=== PATIENT | female | born 1940 | race Caucasian/White ===

== ENCOUNTER 2017-02-24 21:22 | Inpatient (IN) | payer OTHER ==
[2017-02-24 22:01] LABS: % IMMATURE GRANULYOCYTES 0.8 % (0.0-1.1); ABSOLUTE IMMATURE GRANULOCYTES 0.04 10^3/uL (0.00-0.10); ADD DIFF? NO; ADD MORPH? NO; ADD SCAN? NO; ATYPICAL LYMPHOCYTE FLAG 0 (0-99); FRAGMENT RBC FLAG 20 (0-99); HEMATOCRIT 42.9 % (38.0-47.0); HEMOGLOBIN 13.8 g/dL (12.6-16.3); LEFT SHIFT FLG 0 (0-99); LIPEMIA HEMOLYSIS FLAG 80 (0-99); MEAN CELL HEMOGLOBIN 29.7 pg (27.9-34.1); MEAN CELL HEMOGLOBIN CONCENTR. 32.2 g/dL (32.4-36.7); MEAN CELL VOLUME 92.3 fL (81.5-99.8); MEAN PLATELET VOLUME 10.8 fL (8.7-11.7); PLATELET CLUMPS FLAG 10 (0-99); PLATELET COUNT 154 10^3/uL (150-400); RED BLOOD CELL COUNT 4.65 10^6/uL (4.18-5.33); RED CELL DISTRIBUTION WIDTH 17.2 % (11.5-15.2)
--- NOTE | 2017-02-24 22:05 | EDPHY ---
H & P Stated Complaint: possible anxiety, dyspnea, FTT HPI/ROS: HPI CHIEF COMPLAINT: Generalized weakness, anxiety, palpitations HISTORY OF PRESENT ILLNESS: This patient very pleasant 76-year-old female extremely poor historian, usually gets her medical care [facility] however [facility] was on divert and she was brought here to the emergency room by EMS. According to EMS which again is limited history she has been complaining of generalized weakness times 24 hour she slept most of the day today she also complains of intermittent shortness of breath and anxiety and palpitations. Upon arrival here to the emergency room I did Greet and evaluate her she tells me that she was sleepy today and that she has been taking pain medicine for her back however she reports to me she has felt very fatigued and weak and tired today. She also endorses anxiety and palpitations. She denies chest pain. Does endorse shortness of breath. She tells me that she sees a public relations assistant regularly weekly she does have a history of bypass surgery no history of [place] or stroke she reports. She does tell me she has AFib irregular heart rate and takes Coumadin for this. Main complaint in the emergency room is generalized weakness and palpitations and anxiety. Past Medical History: AFib, coronary artery disease Past Surgical History: CABG, peripheral vascular disease Social History: Lives independently in a house in [place] Family History: Noncontributory ROS REVIEW OF SYSTEMS: Of note review of systems and history extremely limited due to patient being a poor historian. Exam Constitutional cachectic, generalized weakness, triage nursing summary reviewed , vital signs reviewed, awake/alert. Eyes normal conjunctivae and sclera, EOMI, PERRLA. HENT normal inspection, atraumatic, appears dehydrated, no epistaxis, neck supple no meningismus, no raccoon eyes. Respiratory clear to auscultation bilaterally, normal breath sounds, no respiratory distress, no wheezing. Cardiovascular tachycardic, irregular, irregular rhythm,, no murmur, no edema, distal pulses normal. Gastrointestinal soft, non-tender, no rebound, no guarding, normal bowel sounds, no distension, no pulsatile mass. Genitourinary no CVA tenderness. Musculoskeletal bilateral lower extremity chronic edema, no midline vertebral tenderness, full range of motion, no calf swelling, no tenderness of extremities , no meningismus, good pulses, neurovascularly intact. Skin pink, warm, & dry, no rash, skin atraumatic. Neurologic do not appreciate any focal neurological weakness anywhere, awake, alert and oriented x 3, AAOx3, moves all 4 extremities equally, motor intact, sensory intact, CN II-XII intact, normal cerebellar, normal vision, normal speech. Psychiatric normal mood/affect. Heme/Lymph/Immune no lymphadenopathy. Differential Diagnosis: Includes but is not limited to in a particular order: Electrolyte disturbance, dehydration, infection, cardiac arrhythmia occluding AFib with RVR, acute [place], pulmonary embolism, dehydration, generalized weakness, failure to thrive Medical Decision Making: Plan for this patient IV establishment, IV fluid bolus as she does appear dehydrated, patient be placed on full monitoring and evaluation advisor, EKG, chest x-ray, blood work, troponin Re-evaluation: EKG interpretation by me on record in [facility] system. Impression time of EKG 2216, this is AFib rate of 145 otherwise I do not appreciate acute ischemia. 2221: Patient noted to be in AFib with RVR heart rate 150s blood pressure 130/ 93. She will be given a 10 mg IV diltiazem bolus and Dilt drip at this time. She will be hydrated IV fluids she is clinically dehydrated. ED x-ray chest one view: Cardiomegaly present. I do not patient pulmonary edema, left-sided pleural effusion. 2322: Re-evaluation at this time patient resting comfortably. Patient is on diltiazem drip heart rate currently 135 AFib irregular. Blood pressure stable. Patient need to be admitted for AFib with RVR electrolyte disturbance with hyponatremia and dehydration. 2337: Spoke with Dr. Hilliard patient be admitted to the hospital service for AFib with RVR that is improving here in the emergency room with a diltiazem drip her way down the 130s from 160s. Patient noted to be hyponatremic chest x- ray reviewed shows cardiomegaly most likely CHF. BNP elevated. I have only given this patient 500 cc of fluid. Source: Patient - Personal History Current Tetanus/Diphtheria Vaccine: Unsure Current Tetanus Diphtheria and Acellular Pertussis (TDAP): Unsure - Medical/Surgical History Hx Asthma: No Hx Chronic Respiratory Disease: No Hx Diabetes: No Hx Cardiac Disease: Yes Hx Renal Disease: No Hx Cirrhosis: No Hx Alcoholism: No Hx HIV/AIDS: No Hx Splenectomy or Spleen Trauma: No Other PMH: chf, a-fib, chronic pain - Social History Smoking Status: Current some day smoker Constitutional: Initial Vital Signs Temperature (C) 36.8 C 02/24/17 21:35 Heart Rate 110 H 02/24/17 21:35 Respiratory Rate 20 02/24/17 21:35 Blood Pressure 105/60 02/24/17 21:35 O2 Sat (%) 93 02/24/17 21:35 O2 Delivery Mode Room Air Allergies/Adverse Reactions: Sulfa (Sulfonamide Antibiotics) Allergy (Verified 02/24/17 21:41) Home Medications: Medication Instructions Recorded Coumadin 02/24/17 HYDROCODONE BIT/ACETAMINOPHEN 02/24/17 ISOSORBIDE DINITRATE 02/24/17 Medical Decision Making - Diagnostics Imaging Results: Imaging Impressions Chest X-Ray 02/24/17 22:11 Impression: 1. Previous surgery of mitral valve. 2. Cardiomegaly and congestive heart failure. - Data Points Laboratory Results: Laboratory Results 02/24/17 21:35 02/24/17 21:35 02/24/17 02/24/17 02/24/17 21:37 21:37 21:35 WBC RBC Hgb Hct MCV MCH MCHC RDW Plt Count MPV Neut % (Auto) Lymph % (Auto) [place] % (Auto) Eos % (Auto) Baso % (Auto) Nucleat RBC Rel Count Absolute Neuts (auto) Absolute Lymphs (auto) Absolute Monos (auto) Absolute Eos (auto) Absolute Basos (auto) Absolute Nucleated RBC Immature Gran % Immature Gran # PT 34.8 SEC H SEC (12.0-15.0) INR 3.39 H (0.83-1.16) APTT 38.2 SEC H SEC (23.0-38.0) D-Dimer 1.04 ug/mLFEU H ug/mLFEU (0.00-0.50) Sodium 128 mEq/L L mEq/L (134-144) Potassium 4.6 mEq/L mEq/L (3.5-5.2) Chloride 87 mEq/L L mEq/L (97-110) Carbon Dioxide 30 mEq/l mEq/l (22-31) Anion Gap 11 mEq/L mEq/L (8-16) BUN 53 mg/dL H mg/dL (7-23) Creatinine 1.8 mg/dL H mg/dL (0.6-1.0) Estimated GFR 27 Glucose 123 mg/dL H mg/dL (70-100) Calcium 9.5 mg/dL mg/dL (8.5-10.4) Magnesium 2.1 mg/dL mg/dL (1.6-2.3) Total Bilirubin 2.2 mg/dL H mg/dL (0.1-1.4) Conjugated Bilirubin 1.1 mg/dL H mg/dL (0.0-0.5) Unconjugated Bilirubin 1.1 mg/dL mg/dL (0.0-1.1) AST 30 IU/L IU/L (14-46) ALT 28 IU/L IU/L (9-52) Alkaline Phosphatase 116 IU/L IU/L (38-126) Creatine Kinase 33 IU/L IU/L (0-156) CK-MB (CK-2) Fraction 2.91 ng/mL ng/mL (0-3.19) Troponin I 0.046 ng/mL H ng/mL (0-0.034) NT-Pro-B Natriuret Pep 7650 pg/mL H pg/mL (0-450) Total Protein 7.2 g/dL g/dL (6.3-8.2) Albumin 3.7 g/dL g/dL (3.5-5.0) Lipase 34.0 IU/L IU/L (23-300) 02/24/17 21:35 WBC 5.02 10^3/uL 10^3/uL (3.80-9.50) RBC 4.65 10^6/uL 10^6/uL (4.18-5.33) Hgb 13.8 g/dL g/dL (12.6-16.3) Hct 42.9 % % (38.0-47.0) MCV 92.3 fL fL (81.5-99.8) MCH 29.7 pg pg (27.9-34.1) MCHC 32.2 g/dL L g/dL (32.4-36.7) RDW 17.2 % H % (11.5-15.2) Plt Count 154 10^3/uL 10^3/uL (150-400) MPV 10.8 fL fL (8.7-11.7) Neut % (Auto) 82.2 % H % (39.3-74.2) Lymph % (Auto) 8.6 % L % (15.0-45.0) [place] % (Auto) 8.2 % % (4.5-13.0) Eos % (Auto) 0.0 % L % (0.6-7.6) Baso % (Auto) 0.2 % L % (0.3-1.7) Nucleat RBC Rel Count 0.0 % % (0.0-0.2) Absolute Neuts (auto) 4.13 10^3/uL 10^3/uL (1.70-6.50) Absolute Lymphs (auto) 0.43 10^3/uL L 10^3/uL (1.00-3.00) Absolute Monos (auto) 0.41 10^3/uL 10^3/uL (0.30-0.80) Absolute Eos (auto) 0.00 10^3/uL L 10^3/uL (0.03-0.40) Absolute Basos (auto) 0.01 10^3/uL L 10^3/uL (0.02-0.10) Absolute Nucleated RBC 0.00 10^3/uL 10^3/uL (0-0.01) Immature Gran % 0.8 % % (0.0-1.1) Immature Gran # 0.04 10^3/uL 10^3/uL (0.00-0.10) PT INR APTT D-Dimer Sodium Potassium Chloride Carbon Dioxide Anion Gap BUN Creatinine Estimated GFR Glucose Calcium Magnesium Total Bilirubin Conjugated Bilirubin Unconjugated Bilirubin AST ALT Alkaline Phosphatase Creatine Kinase CK-MB (CK-2) Fraction Troponin I NT-Pro-B Natriuret Pep Total Protein Albumin Lipase Medications Given: Discontinued Medications Diltiazem HCl (Cardizem 25 Mg/5 Ml Vial) 10 mg IVP EDNOW ONE Stop: 02/24/17 22:20 Last Admin: 02/24/17 22:35 Dose: 10 mg Departure - Departure Disposition: [facility] Inpatient Acute Clinical Impression: Dehydration, Hyponatremia Afib Qualifiers: Atrial fibrillation type: unspecified Qualified Code(s): I48.91 - Unspecified atrial fibrillation Condition: Fair Referrals: Patient,NotPresent [Unknown] - As per Instructions
[2017-02-24 22:06] LABS: ANION GAP 11 mEq/L (8-16); CALCIUM 9.5 mg/dL (8.5-10.4); CARBON DIOXIDE 30 mEq/l (22-31); CHLORIDE 87 mEq/L (97-110); CREATININE 1.8 mg/dL (0.6-1.0); GLOMERULAR FILTRATION RATE 27; GLUCOSE 123 mg/dL (70-100); POTASSIUM 4.6 mEq/L (3.5-5.2); SODIUM 128 mEq/L (134-144)
[2017-02-24] MEDS ORDERED: NS 1,000 ML IV ONE (22:11)
--- NOTE | 2017-02-24 22:18 | CPEKG ---
Heart Rate: 145 RR Interval: 414 QRSD Interval: 72 QT Interval: 284 QTC Interval: 441 QRS [place]: 104 T Wave [place]: -27 EKG Severity - ABNORMAL ECG - EKG Impression: ATRIAL FIBRILLATION, V-RATE 109-155 EKG Impression: LOW VOLTAGE IN FRONTAL LEADS EKG Impression: RIGHT VENTRICULAR HYPERTROPHY EKG Impression: LATERAL INFARCT, AGE INDETERMINATE EKG Impression: BORDERLINE T ABNORMALITIES, INFERIOR LEADS Electronically Signed By: Sage Mueller 25-Feb-2017 07:15:42
[2017-02-24] MEDS ORDERED: DILTIAZEM 25 MG/5 ML VIAL IVP ONE (22:19)
[2017-02-24] MEDS ORDERED: DILTIAZEM 125 MG in D5W 125 ML IV ONE (22:20)
[2017-02-24 23:17] LABS: INR 3.39 (0.83-1.16); PROTIME(PATIENT) 34.8 SEC (12.0-15.0)
[2017-02-24 23:18] LABS: APTT 38.2 SEC (23.0-38.0)
[2017-02-24 23:24] LABS: ALANINE AMINOTRANSFERASE 28 IU/L (9-52); ALBUMIN 3.7 g/dL (3.5-5.0); ALKALINE PHOSPHATASE 116 IU/L (38-126); ASPARTATE AMINOTRANSFERASE 30 IU/L (14-46); BILIRUBIN,TOTAL 2.2 mg/dL (0.1-1.4); BILIRUBIN-CONJUGATED 1.1 mg/dL (0.0-0.5); BILIRUBIN-UNCONJUGATED 1.1 mg/dL (0.0-1.1); MAGNESIUM 2.1 mg/dL (1.6-2.3); TOTAL PROTEIN 7.2 g/dL (6.3-8.2)
[2017-02-24 23:33] LABS: CREATINE KINASE-MB FRACTION 2.91 ng/mL (0-3.19); TROPONIN I 0.046 ng/mL (0-0.034)
[2017-02-25] MEDS ORDERED: ONDANSETRON 4 MG/2 ML VIAL IVP PRN (00:06)
[2017-02-25] MEDS ORDERED: ONDANSETRON DISINTEGRATING 4 MG TAB PO PRN (00:06)
[2017-02-25] MEDS ORDERED: ACETAMINOPHEN 325 MG TAB PO PRN ×2 (00:06→18:57)
[2017-02-25] MEDS: FUROSEMIDE 40 MG/4 ML VIAL IVP SCH ×3 (02:44→17:56)
--- NOTE | 2017-02-25 05:04 | PDGENHP ---
History and Physical - Chief Complaint fatigue, palpitations - History of Present Illness Patient is a 76-year-old female with a history atrial fibrillation on Coumadin, CABG, peripheral vascular disease and dementia who presents to the ED with complaint of generalized fatigue and palpitations. Patient apparently lives at home alone, is usually independent in her ADLs. However today she reports she generally weak and was sleeping most of the day. She also felt intermittent episodes palpitations, shortness of breath and anxiety. She denies associated chest pain or pressure. Given the symptoms she decided to call EMS. She denies any recent fevers, chills, cough, chest congestion, nausea, vomiting, diarrhea or dysuria. On arrival to the ED patient was noted to be afebrile, but tachycardic with stable BP. EKG revealed AFib with RVR to the 150-160 range. Labs revealed normal CBC, therapeutic INR, hyponatremia elevated BUN and creatinine, mildly elevated troponin and markedly elevated BNP. She was initiated on a diltiazem drip with improvement in heart rate, and admitted to the hospital service for further management. History Information - Allergies/Home Medication List Allergies/Adverse Reactions: Sulfa (Sulfonamide Antibiotics) Allergy (Verified 02/24/17 21:41) Home Medications: Coumadin 02/24/17 [Last Taken Unknown] HYDROCODONE BIT/ACETAMINOPHEN 02/24/17 [Last Taken Unknown] ISOSORBIDE DINITRATE 02/24/17 [Last Taken Unknown] I have personally reviewed and updated: family history, medical history, social history, surgical history - Past Medical History Additional medical history: atrial fibrillation. CAD s/p CABG. mitral valve replacement. peripheral vascular disease - Surgical History Reports: coronary bypass surgery Additional surgical history: mitral valve replacement - Family History Positive for: non-pertinent - Social History Smoking Status: Current some day smoker Alcohol Use: None Drug Use: None Additional social history: Patient lives alone, son lives nearby. Review of Systems ROS: 10pt was reviewed & negative except for what was stated in HPI & below Physical Exam Temp Pulse Resp BP Pulse Ox 36.9 C 104 H 20 102/54 L 91 L 02/25/17 00:59 02/25/17 00:59 02/25/17 00:59 02/25/17 00:59 02/25/17 00:59 O2 (L/minute) 2 Constitutional: no apparent distress, appears nourished, not in pain Eyes: PERRL, anicteric sclera, EOMI Ears, Nose, Mouth, Throat: moist mucous membranes, hearing normal, ears appear normal, no oral mucosal ulcers Cardiovascular: regular rate and rhythym, no murmur, rub, or gallop, JVD, pulses symmetric bilaterally, edema (2+ bilaterally ) Peripheral Pulses: 2+: dorsalis-pedis (R), dorsalis-pedis (L) Respiratory: inspiratory crackles (at bases bilaterally ) Gastrointestinal: normoactive bowel sounds, soft, non-tender abdomen, no palpable masses, No guarding, No rebound Genitourinary: no bladder fullness, no bladder tenderness Skin: warm, normal color, other (chronic venous stasis changes) Musculoskeletal: full muscle strength, no muscle tenderness, normal joint ROM, no joint effusions Neurologic: AAOx3, sensation intact bilaterally, CN II-XII Intact, No weakness, No numbness Psychiatric: interacting appropriately, not anxious, not encephalopathic, thought process linear Lab Data & Imaging Review 02/25/17 03:42 02/25/17 03:42 WBC 5.02 10^3/uL (3.80-9.50) 02/24/17 21:35 RBC 4.65 10^6/uL (4.18-5.33) 02/24/17 21:35 Hgb 13.8 g/dL (12.6-16.3) 02/24/17 21:35 Hct 42.9 % (38.0-47.0) 02/24/17 21:35 MCV 92.3 fL (81.5-99.8) 02/24/17 21:35 MCH 29.7 pg (27.9-34.1) 02/24/17 21:35 MCHC 32.2 g/dL (32.4-36.7) L 02/24/17 21:35 RDW 17.2 % (11.5-15.2) H 02/24/17 21:35 Plt Count 154 10^3/uL (150-400) 02/24/17 21:35 MPV 10.8 fL (8.7-11.7) 02/24/17 21:35 Neut % (Auto) 82.2 % (39.3-74.2) H 02/24/17 21:35 Lymph % (Auto) 8.6 % (15.0-45.0) L 02/24/17 21:35 [place] % (Auto) 8.2 % (4.5-13.0) 02/24/17 21:35 Eos % (Auto) 0.0 % (0.6-7.6) L 02/24/17 21:35 Baso % (Auto) 0.2 % (0.3-1.7) L 02/24/17 21:35 Nucleat RBC Rel Count 0.0 % (0.0-0.2) 02/24/17 21:35 Absolute Neuts (auto) 4.13 10^3/uL (1.70-6.50) 02/24/17 21:35 Absolute Lymphs (auto) 0.43 10^3/uL (1.00-3.00) L 02/24/17 21:35 Absolute Monos (auto) 0.41 10^3/uL (0.30-0.80) 02/24/17 21:35 Absolute Eos (auto) 0.00 10^3/uL (0.03-0.40) L 02/24/17 21:35 Absolute Basos (auto) 0.01 10^3/uL (0.02-0.10) L 02/24/17 21:35 Absolute Nucleated RBC 0.00 10^3/uL (0-0.01) 02/24/17 21:35 Immature Gran % 0.8 % (0.0-1.1) 02/24/17 21:35 Immature Gran # 0.04 10^3/uL (0.00-0.10) 02/24/17 21:35 PT 34.8 SEC (12.0-15.0) H 02/24/17 21:37 INR 3.39 (0.83-1.16) H 02/24/17 21:37 APTT 38.2 SEC (23.0-38.0) H 02/24/17 21:37 D-Dimer 1.04 ug/mLFEU (0.00-0.50) H 02/24/17 21:37 Sodium 128 mEq/L (134-144) L 02/24/17 21:35 Potassium 4.6 mEq/L (3.5-5.2) 02/24/17 21:35 Chloride 87 mEq/L (97-110) L 02/24/17 21:35 Carbon Dioxide 30 mEq/l (22-31) 02/24/17 21:35 Anion Gap 11 mEq/L (8-16) 02/24/17 21:35 BUN 53 mg/dL (7-23) H 02/24/17 21:35 Creatinine 1.8 mg/dL (0.6-1.0) H 02/24/17 21:35 Estimated GFR 27 02/24/17 21:35 Glucose 123 mg/dL (70-100) H 02/24/17 21:35 Calcium 9.5 mg/dL (8.5-10.4) 02/24/17 21:35 Magnesium 2.1 mg/dL (1.6-2.3) 02/24/17 21:37 Total Bilirubin 2.2 mg/dL (0.1-1.4) H 02/24/17 21:37 Conjugated Bilirubin 1.1 mg/dL (0.0-0.5) H 02/24/17 21:37 Unconjugated Bilirubin 1.1 mg/dL (0.0-1.1) 02/24/17 21:37 AST 30 IU/L (14-46) 02/24/17 21:37 ALT 28 IU/L (9-52) 02/24/17 21:37 Alkaline Phosphatase 116 IU/L (38-126) 02/24/17 21:37 Creatine Kinase 33 IU/L (0-156) 02/24/17 21:37 CK-MB (CK-2) Fraction 2.91 ng/mL (0-3.19) 02/24/17 21:37 Troponin I 0.046 ng/mL (0-0.034) H 02/24/17 21:37 NT-Pro-B Natriuret Pep 7650 pg/mL (0-450) H 02/24/17 21:37 Total Protein 7.2 g/dL (6.3-8.2) 02/24/17 21:37 Albumin 3.7 g/dL (3.5-5.0) 02/24/17 21:37 Lipase 34.0 IU/L (23-300) 02/24/17 21:37 Visualized and Interpreted Chest x-ray results: Yes Chest X-Ray results: effusion (L sided) Visualized and Interpreted EKG results: Yes EKG additional interpertation: afib with rvr Assessment & Plan Assessment: patient is a 76-year-old female with history of atrial fibrillation, CAD, mitral valve replacement, peripheral vascular disease presents to the ED with complaint of generalized fatigue and palpitations. ED evaluation reveals AFib with RVR to the 150 and 160 range, as well as bilateral pleural effusions and lower extremity edema. She was initiated on a diltiazem drip with improvement in her rate. Plan: # AFib with RVR presenting EKG shows AFib with RVR without obvious ischemic changes. Her rate has improved with a diltiazem drip, will continue this and transition to oral meds as tolerated. Provoking cause of AFib is not obvious at this time, may be related to acute decompensated heart failure. Low suspicion for PE given therapeutic INR. Will attempt to optimize her volume status, continue diltiazem and check a.m. TTE. - diltiazem gtt for HR control - monitor electrolytes, goal K>4, Mg>2 - f/u TTE - continue telemetry monitoring - continue coumadin # acute fluid overload Patient's EF is not known, she usually gets her care at [facility]. She appears to be in an acute CHF exacerbation on presentation, given her lower extremity edema, pleural effusions on cxr and elevated BNP. However, her blood pressure is tolerating the diltiazem well. Will initiate lasix diuresis, monitoring strict I/Os, daily weights and electrolytes. Will also need to confirm her home meds. # CAD, mitral valve replacement INR is therapeutic, will continue coumadin with goal 2.5-3.5. She denies chest pain at this time and ekg is nonischemic. Troponin is indeterminately elevated, likely related to demand ischemia in setting of rapid heart rate. Need to again confirm her home meds. # dispo: admit to inpatient service for likely > 2 [place] stay given acute decompensated heart failure and Afib with RVR # gen: cardiac diet DVT ppx: on coumadin Full code
[2017-02-25 05:06] LABS: % IMMATURE GRANULYOCYTES 0.4 % (0.0-1.1); ABSOLUTE IMMATURE GRANULOCYTES 0.03 10^3/uL (0.00-0.10); ADD DIFF? NO; ADD MORPH? NO; ADD SCAN? NO; ATYPICAL LYMPHOCYTE FLAG 0 (0-99); FRAGMENT RBC FLAG 20 (0-99); HEMATOCRIT 38.7 % (38.0-47.0); HEMOGLOBIN 12.2 g/dL (12.6-16.3); LEFT SHIFT FLG 0 (0-99); LIPEMIA HEMOLYSIS FLAG 80 (0-99); MEAN CELL HEMOGLOBIN 29.5 pg (27.9-34.1); MEAN CELL HEMOGLOBIN CONCENTR. 31.5 g/dL (32.4-36.7); MEAN CELL VOLUME 93.7 fL (81.5-99.8); MEAN PLATELET VOLUME 11.5 fL (8.7-11.7); PLATELET CLUMPS FLAG 0 (0-99); PLATELET COUNT 159 10^3/uL (150-400); RED BLOOD CELL COUNT 4.13 10^6/uL (4.18-5.33)
[2017-02-25 05:16] LABS: ANION GAP 8 mEq/L (8-16); CALCIUM 8.9 mg/dL (8.5-10.4); CARBON DIOXIDE 32 mEq/l (22-31); CHLORIDE 90 mEq/L (97-110); CREATININE 1.7 mg/dL (0.6-1.0); GLOMERULAR FILTRATION RATE 29; GLUCOSE 136 mg/dL (70-100); MAGNESIUM 2.1 mg/dL (1.6-2.3); POTASSIUM 4.4 mEq/L (3.5-5.2); SODIUM 130 mEq/L (134-144)
[2017-02-25 05:18] LABS: INR 3.79 (0.83-1.16)
[2017-02-25 05:19] LABS: APTT 39.1 SEC (23.0-38.0)
[2017-02-25 05:29] LABS: CREATINE KINASE-MB FRACTION 2.57 ng/mL (0-3.19); TROPONIN I 0.044 ng/mL (0-0.034)
[2017-02-25 06:18] LABS: COLOR YELLOW; LEUKOCYTE ESTERASE,URINE TRACE (NEGATIVE); NITRITE,URINE NEGATIVE (NEGATIVE)
[2017-02-25 06:28] LABS: HYALINE CASTS 25-50 /lpf (0-1); MUCUS TRACE /lpf (NONE-1+)
--- NOTE | 2017-02-25 08:33 | CPEKG ---
Heart Rate: 77 RR Interval: 779 QRSD Interval: 68 QT Interval: 412 QTC Interval: 467 QRS [place]: 96 T Wave [place]: 98 EKG Severity - ABNORMAL ECG - EKG Impression: ATRIAL FIBRILLATION EKG Impression: VENTRICULAR PREMATURE COMPLEX EKG Impression: LOW VOLTAGE IN FRONTAL LEADS EKG Impression: NONSPECIFIC T ABNORMALITIES, LATERAL LEADS EKG Impression: RATES HAVE SLOWED Electronically Signed By: Panda Sin 25-Feb-2017 16:45:28
[2017-02-25] MEDS ORDERED: DILTIAZEM 125 MG in D5W 125 ML IV SCH (10:30)
[2017-02-25] MEDS ORDERED: SODIUM CL NASAL 45 ML BTL ONE (11:30)
[2017-02-25] MEDS ORDERED: MAGNESIUM HYDROXIDE 30 ML UDCUP PO PRN (16:22)
--- NOTE | 2017-02-25 16:49 | HOSPPROG ---
Hospitalist Progress Note Assessment/Plan: 76 yo female with h/o A fib presents in acute heart failure, admitted this am by Dr. Cruz. Chart reviewed, pt seen and examined. Acute heart failure - Still volume up, cont diuresis with IV Lasix. Echo done, report pending. Follow daily weights, I&O's. A fib with RVR - HR better controlled on low dose Dilt drip (5/hr), will try to switch to orals. MVR on chronic anticoagulation - INR goal 2.5-3.5, slightly supratherapeutic. Hold coumadin for now, pharmacy to dose. CAD s/p CABG - Chest pain free. Cont imdur, statin, Toprol as BP tolerates Full code Dispo - cont inpt for ongoing diuresis Subjective: Pt is extremely anxious. Denies CP or SOB. No palpitations. Objective: Vital Signs Temp Pulse Resp BP Pulse Ox 36.7 C 115 H 12 90/58 L 96 02/25/17 15:33 02/25/17 15:33 02/25/17 15:33 02/25/17 15:33 02/25/17 15:33 Laboratory Results 02/25/17 03:42 02/25/17 03:42 02/24/17 02/25/17 02/26/17 05:59 05:59 05:59 Intake Total 1000 350 Output Total 600 Balance 1000 -250 PT 38.0 SEC (12.0-15.0) H 02/25/17 03:42 INR 3.79 (0.83-1.16) H 02/25/17 03:42 - Physical Exam Constitutional: chronically ill appearing, cachectic Ears, Nose, Mouth, Throat: moist mucous membranes Cardiovascular: regular rate and rhythym Respiratory: no respiratory distress, other (vague bibasilar crackles) Gastrointestinal: normoactive bowel sounds, soft, non-tender abdomen Skin: warm Neurologic: AAOx3 Psychiatric: anxious, poor insight, poor judgement ICD10 Worksheet Patient Problems: Problems Problem Status Onset Afib Acute Dehydration Acute Hyponatremia Acute
--- NOTE | 2017-02-25 17:07 | ECHO ---
[id number] Preliminary + + [address] : : [place] [address] : : [phone] + + Adult Echocardiographic Report + + :Name: ROLANDO CONROY Study Date: 02/25/2017 12:22 PM : : Hospital Admission Number: [id number] : :: 1940 Gender: Female Height: 64 in : :Age: 76 yrs Race: WH Weight: 107 lb : :Reason For Study: Eval LV Fx : : BSA: 1.5 meters2: :History: New onset A-fib : + + MMode/2D Measurements \T\ Calculations IVSd: 0.82 cm RVDd: 3.7 cm FS: 44.1 % Ao root diam: 3.0 cm LVPWd: 0.95 cm LVIDd: 2.8 cm EDV(Teich): 30.5 ml ACS: 1.1 cm LVIDs: 1.6 cm ESV(Teich): 7.0 ml LA dimension: 5.1 cm EF(Teich): 77.0 % LVOT diam: 1.8 cm LVOT area: 2.5 cm2 Normal Measurement Values: + + :LVIDd (3.5-5.7cm) IVSd (0.6-1.1cm) LVPWd (0.6-1.1cm) Aortic Root (2.0-3.7cm)Left Atrium (1.5-4.0cm): :LV Vol(d) (76-115ml) LV Vol(s) (29-48ml) Ejec Fraction (50-65%)PV Shekhar (0.6- 1.2m/s) TV Shekhar (0.4-1.0m/s) : :MV E Shekhar (0.8-1.0m/s)MV A Shekhar (0.3-1.0m/s)LVOT Shekhar (0.7-1.2m/s) Asc Ao Shekhar ( 0.9-1.8m/s) : + + Doppler Measurements \T\ Calculations MV dec time: MV V2 mean: MV P1/2t max shekhar: Ao V2 max: 0.41 sec 114.5 cm/sec 188.7 cm/sec 120.2 cm/sec MV mean PG: MV P1/2t: 118.4 msec Ao max P.3 mmHg 5.8 mmHg MV V2 VTI: 46.8 cmMVA(P1/2t): 1.9 cm2 Ao mean PG: MV dec slope: 3.5 mmHg MVA(VTI): 0.55 [id number] cm/sec2 Ao V2 mean: 88.8 cm/sec Ao V2 VTI: 22.8 cm GUS(I,D): 1.1 cm2 GUS(V,D): 1.1 cm2 LV V1 max: MR max shekhar: SV(LVOT): 25.9 ml PA V2 max: 50.8 cm/sec 329.8 cm/sec 84.2 cm/sec LV V1 max PG: MR max PG: PA max P.0 mmHg 43.5 mmHg 2.8 mmHg LV V1 mean P.53 mmHg LV V1 mean: 34.0 cm/sec LV V1 VTI: 10.2 cm PI end-d shekhar: TR max shekhar: 139.8 cm/sec 293.2 cm/sec TR max P.4 mmHg RAP systole: 10.0 mmHg RVSP(TR): 44.4 mmHg Left Ventricle The left ventricle is normal in size. There is normal left ventricular wall thickness. The left ventricular ejection fraction is normal. There is Doppler evidence for diastolic dysfunction. Ejection Fraction = 75%. Flattened septum is consistent with RV pressure/volume overload. Right Ventricle The right ventricle is moderate to severely dilated. Atria The left atrium is severely dilated. The right atrium is severely dilated. Mitral Valve There is mild to moderate mitral annular calcification. The report indicates that the mitral valve has been replaced. It appears to be a mitral valve ring. The patient is a poor historian. The rhythm is atrial fibrillation. There is mild mitral stenosis. The aaliyah valve mean gradient is 6.3 mmHg in atrial fibrillation. There is mild mitral regurgitation. Tricuspid Valve There is torrential tricuspid regurgitation. Right ventricular systolic pressure is 45mmHg. There is Doppler evidence for mild to moderate pulmonary hypertension. Aortic Valve Moderate Aortic Valve Calcification. There is no aortic stenosis. Mild aortic regurgitation. Pulmonic Valve Mild to moderate pulmonic valvular regurgitation. Great Vessels The aortic root is normal size. Pericardium/Pleural There is no pericardial effusion. There is a large pleural effusion. Conclusion A complete two-dimensional transthoracic echocardiogram was performed (2D, M-mode, Doppler and color flow Doppler). LV systolic function appears normal with estimated EF of 75%. Diastolic dysfunction. Flattened septum is consistent with RV pressure/volume overload. The right ventricle is moderate to severely dilated. The left atrium is severely dilated. The right atrium is severely dilated. There is mild to moderate mitral annular calcification. The report indicates that the mitral valve has been replaced. It appears to be a mitral valve ring. There is mild mitral stenosis. There is mild mitral regurgitation. There is torrential tricuspid regurgitation. There is Doppler evidence for mild to moderate pulmonary hypertension with RVSP of 45 mm Hg Moderate Aortic Valve Calcification with mild AI Mild to moderate pulmonic valvular regurgitation. There is no pericardial effusion. There is a large pleural effusion. Final Reading Physician: electronically signed on 02/25/2017 05:04 PM Ordering Physician: Elizabet Hilliard Performed By: Santo Felix, RDCS
[2017-02-25] MEDS: DILTIAZEM 30 MG TAB PO SCH (17:56)
[2017-02-25] MEDS ORDERED: HYDROCODONE/APAP 5/325 TAB PO PRN (18:39)
[2017-02-25] MEDS: HYDROCODONE/APAP 5/325 TAB PO PRN (19:18)
[2017-02-25] MEDS: ISOSORBIDE MONONITRATE 30 MG TAB.SR PO SCH (20:28)
[2017-02-26] MEDS: DILTIAZEM 30 MG TAB PO SCH ×5 (00:22→23:02)
[2017-02-26 05:27] LABS: INR 2.85 (0.83-1.16); PROTIME(PATIENT) 30.3 SEC (12.0-15.0)
[2017-02-26 05:30] LABS: ALBUMIN 3.6 g/dL (3.5-5.0); ANION GAP 10 mEq/L (8-16); CALCIUM 8.8 mg/dL (8.5-10.4); CARBON DIOXIDE 33 mEq/l (22-31); CHLORIDE 87 mEq/L (97-110); CREATININE 1.2 mg/dL (0.6-1.0); GLOMERULAR FILTRATION RATE 43; GLUCOSE 108 mg/dL (70-100); POTASSIUM 3.4 mEq/L (3.5-5.2); SODIUM 130 mEq/L (134-144)
[2017-02-26] MEDS ORDERED: PROTOCOL POTASSIUM 1 DOSE MISC PRN (08:20)
[2017-02-26] MEDS: ROSUVASTATIN CALCIUM 10 MG TAB PO SCH (08:52)
[2017-02-26] MEDS: POTASSIUM CL 20 MEQ TAB PO SCH ×2 (08:53→13:23)
[2017-02-26] MEDS: METOPROLOL SUCCINATE XR 25 MG TAB PO SCH (08:53)
[2017-02-26] MEDS: FUROSEMIDE 40 MG/4 ML VIAL IVP SCH ×3 (08:54→22:25)
[2017-02-26] MEDS ORDERED: BISACODYL 10 MG SUPP PR PRN (11:41)
[2017-02-26] MEDS ORDERED: LACTULOSE 20 GM/30 ML UDCUP PO PRN (11:41)
--- NOTE | 2017-02-26 11:44 | HOSPPROG ---
Hospitalist Progress Note Assessment/Plan: 76 yo female with h/o A fib presents in acute heart failure, admitted this am by Dr. Cruz. Chart reviewed, pt seen and examined. Acute hypoxemic respiratory failure 2/2 acute heart failure - Still volume up with peripheral edema, bibasilar crackles and JVD. Echo c/w right heart failure , nl EF, but mod pulmonary hypertension, severe TR and increased RV pressures. INR supratherapeutic on arrival making PE unlikely. -Increase IV Lasix to TID. -Follow daily weights, I&O's. -cardiology consult A fib with RVR - HR better controlled, off dilt drip, transitioned to po dilt, along with toprol. MVR on chronic anticoagulation - INR goal 2.5-3.5, slightly supratherapeutic on arrival. Now therapeutic, pharmacy dosing coumadin CAD s/p CABG - Chest pain free. Cont imdur, statin, Toprol as BP tolerates Word finding difficulty - check brain MRI. Or might this be anxiety? If MRI negative, consider early intervention school psychologist osiel. Cog eval also planned. Full code Dispo - cont inpt for ongoing diuresis Subjective: Pt feels "the same". She is intermittently tearful, seems very anxious. Sometimes has difficulty expressing herself. Denies CP or SOB at rest. No fevers. Objective: Vital Signs Temp Pulse Resp BP Pulse Ox 36.2 C 102 H 20 112/57 L 97 02/26/17 09:31 02/26/17 09:31 02/26/17 09:31 02/26/17 09:31 02/26/17 09:31 Laboratory Results 02/25/17 03:42 02/26/17 03:44 02/25/17 02/26/17 02/27/17 05:59 05:59 05:59 Intake Total 1000 850 Output Total 1350 Balance 1000 -500 PT 30.3 SEC (12.0-15.0) H 02/26/17 03:44 INR 2.85 (0.83-1.16) H 02/26/17 03:44 - Physical Exam Constitutional: chronically ill appearing, cachectic Eyes: PERRL Ears, Nose, Mouth, Throat: moist mucous membranes Cardiovascular: irregularly irregular Respiratory: no respiratory distress, inspiratory crackles Gastrointestinal: normoactive bowel sounds, soft, non-tender abdomen Skin: warm Musculoskeletal: full muscle strength Psychiatric: anxious, poor memory ICD10 Worksheet Patient Problems: Problems Problem Status Onset Afib Acute Dehydration Acute Hyponatremia Acute
[2017-02-26] MEDS ORDERED: CEPACOL LOZENGE PO ONE (13:16)
[2017-02-26] MEDS: ISOSORBIDE MONONITRATE 30 MG TAB.SR PO SCH ×2 (13:21→20:15)
[2017-02-26] MEDS: POLYETHYLENE GLYCOL 3350 17 GM PKT PO PRN (13:22)
[2017-02-26] MEDS: HYDROCODONE/APAP 5/325 TAB PO PRN (13:22)
--- NOTE | 2017-02-26 15:20 | GCON ---
[f rep st] CONSULTATION CARDIOLOGY CONSULT DATE OF CONSULTATION: 02/26/2017 PRIMARY CROWNING INSPECTOR: Dr. Cindy Johnson. CHIEF COMPLAINT: Heart failure. HISTORY OF PRESENT ILLNESS: We are asked by Dr. Desir to visit with this patient. The patient is a 76-year-old female, with a history of coronary disease and valvular heart disease. Her records a re at the [facility] and at [facility]. We have requested these records. The patient hersel f is a poor historian. From talking with her, Dr. Desir, and from chart review, what I can gather is that she had a 2-vessel bypass and mitral valve repair several years ago. She also has a histor y of atrial fibrillation and is on Coumadin. She presented to the [facility] emergency department by ambulance on February 24, with t he primary complaint primary complaint of weakness and fatigue. She was found to be in rapid atrial fibrillation, acute renal failure, borderline troponin elevation, and heart failure. During her hospitalization, she has been rate controlled with initially IV diltiazem and now moderat e dose oral beta-hayley and oral diltiazem. She has diuresed. Upon my evaluation, she reports that she is still fatigued, but is not complaining of chest pain or dyspnea. REVIEW OF SYSTEMS: Unable to perform given the patient's very vague history and emotional lability. ALLERGIES: Sulfa. PAST MEDICAL HISTORY: 1. Atrial fibrillation. 2. Coronary disease with history of 2-vessel CABG. 3. Valvular heart disease with history of mitral valve repair and residual severe tricuspid regurgi tation. 4. Peripheral vascular disease. 5. Possible dementia. 6. Anxiety. 7. Asthma versus COPD. OUTPATIENT MEDICATIONS: Warfarin, albuterol, Lasix (looks like 80 mg and 120 mg, HCTZ 25 mg daily, isosorbide mononitrate 60 mg twice daily, metoprolol succinate 37.5 mg daily, Klor-Con, Crestor 5 mg daily, and Spiriva. SOCIAL HISTORY: The patient lives alone. Her son is involved in her care. She does smoke cigarett es, but does not drink alcohol. FAMILY HISTORY: Not applicable. PHYSICAL EXAM: VITAL SIGNS: Blood pressure 108/59, heart rate 102, oxygen saturation 97% on 2 L. She is afebrile. GENERAL: She is a cachectic, frail, elderly woman, intermittently tearful. HEENT : Sclerae are clear and free of jaundice. Mucous membranes are moist. CARDIOVASCULAR: JVP is 12 cm of water. Carotids equal and 2+ without a bruit. Irregularly irregular rhythm with a soft, holo systolic murmur at the left lower sternal border. No S3. LUNGS: Decreased breath sounds at the ba ses bilaterally. CHEST: Sternotomy scar. ABDOMEN: Distended, but nontender. No obvious hepatosp lenomegaly or masses. No bruit. EXTREMITIES: Warm with stigmata of chronic venous insufficiency. 1+ pitting edema to the midshin bilaterally. NEURO: She is alert and oriented. She answers quest ions after prompting. She is emotionally labile. No gross focal neurologic deficits. LABORATORY DATA: White count 7.87, hematocrit 38.7, platelets 159, INR 2.85. Sodium 130, potassium 3.4, chloride 87, bicarb 33, BUN 47, creatinine 1.2. Her creatinine was 1.8 on admission. Magnesi um 2.1. Troponin peak is 0.046. BNP 7650. TSH is normal. Urinalysis shows 3-5 white cells, with negative nitrates and negative ketones. EKG reviewed by me x2: Initial EKG shows atrial fibrillati on with rapid ventricular response. Second EKG shows controlled atrial fibrillation. No ischemic c hanges. Delayed R-wave progression. Single PVC. Chest x-ray reviewed by me: Sternotomy wires. M itral valve repair. Heart failure. Echocardiogram reviewed by me: Normal LV size and systolic function. The RV is severely dilated an d severely dysfunctional. There was torrential tricuspid regurgitation. Estimated pulmonary pressu res are 45. Mitral valve repair. The mean gradient across this is 6 mmHg. Mild mitral regurgitati on. Large pleural effusion. ASSESSMENT AND PLAN: 76-year-old female with a history of CABG and mitral valve repair as well as a trial fibrillation. She is admitted with atrial fibrillation and rapid ventricular response as well as predominantly right heart failure. This is likely an acute on chronic problem. It is possible that rapid atrial fibrillation tipped her over in terms of her volume status. 1. Heart failure: Acute on chronic right-sided heart failure. Profound tricuspid regurgitation. I am not sure whether she has a history of pulmonary hypertension related to her smoking/possible ch ronic obstructive pulmonary disease, and has had worsening tricuspid regurgitation and right ventric ular dysfunction from that, or whether she has primary tricuspid valve disease with progressive righ t ventricular dilation and dysfunction. Agree with diuresis and rate control. We will obtain recor ds from the [place]. 2. Atrial fibrillation: Rate control has improved. Continue beta-hayley and diltiazem. May need to up titrate diltiazem. She is on warfarin for a [id number] score of at least 4. 3. Acute renal failure: Improved. 4. Altered mental status: She appears emotionally labile with some memory issues. Brain MRI is pe nding. We will obtain records. 5. Hyponatremia: Possibly due to her volume issues. Follow. Thank you for allowing us to participate in her care. I will with you. Copy requested to: Cindy Johnson MD /[id number]/MODL
--- NOTE | 2017-02-26 15:47 | WOCRNPDOC ---
WOCRMitzi Advanced Assessment Note - Skin Integrity Problem, Advanced Assess Coccyx Pressure Injury Dressing Type: Allevyn Life Dressing Description: Clean/Dry, Intact Exudate Amount: None Integumentary Issue Intervention: Visualized Under Dressing Margie Wound Tissue: Erythema, Non-blanching, Intact Margie Wound Swelling: None Site Odor: None Site Measurement - Head-to-Toe Length X Width X Depth (cm): 6 x 6 x 0 Pressure Injury Stage: Stage 1 Pressure Injury Present on Admit: Yes (per admitting RN request) Skin Integrity Problem Comment: Diffuse non-blanchable erythema at sacrum, visualized while patient was standing for hygiene in bathroom. Patient is extremely lean, with no evidence of adipose tissue in the sacral and coccyx areas, therefore is at high risk for breakdown. Discussed prevention with patient and BETINA Engel, including recommendation for air cushion to chair.
[2017-02-26] MEDS ORDERED: WARFARIN SODIUM 2.5 MG TAB PO ONE (16:00)
[2017-02-26 18:32] LABS: POTASSIUM 3.9 mEq/L (3.5-5.2)
[2017-02-26] MEDS: NICOTINE 21 MG/24 HR PATCH TD SCH (20:08)
[2017-02-26] MEDS: SENNOSIDES/DOCUSATE SODIUM TAB PO SCH (20:21)
[2017-02-26] MEDS ORDERED: POTASSIUM CL 10 MEQ TAB PO ONE (22:13)
[2017-02-27 04:17] LABS: INR 2.2 (0.83-1.16); PROTIME(PATIENT) 24.6 SEC (12.0-15.0)
[2017-02-27 04:21] LABS: ANION GAP 5 mEq/L (8-16); CALCIUM 8.4 mg/dL (8.5-10.4); CARBON DIOXIDE 36 mEq/l (22-31); CHLORIDE 87 mEq/L (97-110); CREATININE 0.8 mg/dL (0.6-1.0); GLOMERULAR FILTRATION RATE > 60; GLUCOSE 106 mg/dL (70-100); POTASSIUM 3.3 mEq/L (3.5-5.2); SODIUM 128 mEq/L (134-144)
[2017-02-27] MEDS: DILTIAZEM 30 MG TAB PO SCH (06:02)
--- NOTE | 2017-02-27 09:41 | GCON ---
[f rep st] CONSULTATION NEUROLOGIC CONSULTATION REFERRING PHYSICIAN: Amparo Desir MD HISTORY OF PRESENT ILLNESS: History is obtained in reviewing the medical record, as well as discuss ion with the patient. She came to the hospital on February with rather nonspecific presentation of n ot doing very well over 24 hours. According to the emergency room notes from Dr. Mueller, she had b een having shortness of breath and anxiety and some palpitations. She has been having some back jeovany n and taking medicines for that. She reported feeling weak and tired on the day of presentation, an d was also feeling somewhat anxious. We have somewhat limited medical records, because she apparent ly is usually seen in [place]. In any case, she has a known history of atrial fibrillation and is on anticoagulation. The patient has been monitored over the last 48 hours since admission, and a little bit of word-find ing difficulties yesterday prompted more evaluation for cognitive status, and MRI showed evidence of acute stroke in the left anterior temporal lobe and some other chronic microvascular changes, as we ll as perhaps some other area of subacute infarct near the right inner hemispheric fissure. Neurology has been consulted for further input regarding her case. As I try to gather information f rom the patient, she is very tangential and needs to be redirected. She has a tendency to talk abou t events in the past that include leaving [place] in [place], and then starts to reference her current job, and needs to be redirected repeatedly. Even with that, she has almost no insight about these current events, and needs direct questioning in order to provide productive answers. She says that she isn't exactly sure why she is here, but references feeling some shortness of breath. There have been no recent acute explanations for this apparently. There was not an obvious trigger, and no cl ear-cut exacerbating or alleviating factors. She has not had a stroke in the past, as best I can as certain. She is denying feeling headache or change in vision or speech, chewing, or swallowing. Wh en I ask her about language, she tends to tell me she keeps converting between Barbadian and [place]ian, but throughout the interview she only spoke in [place]ian, and was very articulate. The degree of change seems to be significant compared to her baseline, although I do not know very w ell her true baseline, as there is no one here with her to clarify how well she functions, though I know she has been independently living and, if she is accurate, she apparently actually still works at the [employer]. REVIEW OF SYSTEMS: Further 10-point review of systems completed and unremarkable, except for that n oted above. She does have a history of coronary disease with bypass, atrial fibrillation without an y anticoagulation, and is remaining therapeutic in her INR. There is mention that she occasionally has smoked. I do not know about actual alcohol use. 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 I do not know if this is actually accurate or not, b ut seems logical from the information we have. FAMILY HISTORY: She is denying specific family history of stroke. CURRENT LIST OF MEDICATIONS: Lasix, hydrocodone, metoprolol, nicotine, Coumadin, Crestor, and some other p.r.n. medications. ALLERGIES: She lists an allergy to sulfa medications. PHYSICAL EXAM: VITAL SIGNS: Blood pressure is 109/56, pulse of 103, temperature 36.6, oxygen satur ation 90% on 2 L of oxygen. When she presented to the hospital originally, and throughout [facility], she has had no fever. The pulse rate was around 120 to 130 initially, and is now under bett er control. Blood pressures remain relatively stable. GENERAL: She is an older woman, who is well developed, very thin, but not in any acute distress. SKIN: She has somewhat erythematous, wrinkle d legs with trophic skin changes and some mild edema. VASCULAR: I do not palpate pulses very easil y in the ankles. NECK: Supple with no bruits or masses. CARDIAC: Irregular rhythm, but no distin ct murmur. NEUROLOGIC EXAMINATION: She is awake and alert, and very tangential. She periodically makes commen ts about the nurses or staff, implying that they were not very interested in what is happening and t hat they might want to just leave her room. She is oriented to being in the [facility] of [place], and tammie tejada knows she is in the hospital. She states the year is 2007. She knows it is the month of February. Tammie tejada is very vague on recent memory. Although she has a general idea what has been occurring, she jude ot specify exactly why she chose to come to the hospital. More remote memories: She often referenc es and talks well back into her youth, but it is unclear how much of that is accurate, but seems ivette sonable what she is describing. Although she talked about switching from [place]ian to [place]adian wes ge, she spoke in [place]ian throughout, and has no problem with basic language skill. She did not demo nstrate word-finding problems. She tends to be verbose, as well as tangential. Her general fund of knowledge is reduced. Concentration and attention are also reduced. Pupils 2 mm and reactive. I cannot view the fundi. Visual pompa are full. Extraocular movements are intact. Normal facial se nsation and strength. Palate elevates symmetrically. Tongue protrudes midline. Hearing is preserv ed. She is not weak on head turning or shoulder shrug. Motor exam: There is a generalized wasting of musculature, with relatively preserved strength for her size and age, and at least 4/5 throughou t, although she has little bit of pain in the right shoulder, which restricts some of the resistance . Sensation is preserved for temperature and light touch, with some decreased perception of cold in the feet. Reflexes 1+. No Babinski signs. She is not ataxic in [id number]. She was too unst able right now for having her attempt to walk. IMAGING: I have reviewed the brain MRI, which shows changes consistent with acute stroke in the lef t mesial temporal lobe on the left, as well as a change in the parasagittal cingulate gyrus on the r ight, consistent with possible infarct, and other bilateral changes of chronic microvascular disease , and mild to moderate atrophy. IMPRESSION: The patient has suffered an acute stroke of uncertain onset, but likely within the last 3-5 days based on her presenting to the hospital in an acute fashion, although none of the presenti ng symptoms were consistent with stroke. She had a change in some of her language, for which furthe r workup was initiated and confirmed some left hemisphere pathology as outlined, which would correla te with the symptom change of some language disturbance. As of now, she continues to have challenge s with tangentiality and lacking insight. 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 We will learn more about that with time. She does not have focal numbne ss or weakness, and her language skills are actually quite good currently. As her general medical c ondition improves, ongoing physical therapy, occupational therapy, and speech therapy will be helpfu l in determining her disposition. She is already on full anticoagulation, so that does not need to be changed. She is already on a statin therapy. The echocardiogram is not showing any specific emb olic source out of the known atrial fibrillation. I will check a carotid ultrasound to make sure th ere is no significant stenosis there. The patient has been critically ill and has a potentially life-threatening condition, for which she has now stabilized, but will need to be monitored, and ongoing outpatient monitoring will be needed, particularly from a cardiac standpoint. /[id number]/MODL
[2017-02-27] MEDS: ISOSORBIDE MONONITRATE 30 MG TAB.SR PO SCH ×2 (09:55→22:08)
[2017-02-27] MEDS: SENNOSIDES/DOCUSATE SODIUM TAB PO SCH ×2 (09:55→22:09)
[2017-02-27] MEDS: ROSUVASTATIN CALCIUM 10 MG TAB PO SCH (09:57)
[2017-02-27] MEDS: NICOTINE 21 MG/24 HR PATCH TD SCH ×2 (09:58→22:17)
[2017-02-27] MEDS: METOPROLOL SUCCINATE XR 25 MG TAB PO SCH (09:58)
[2017-02-27] MEDS: POTASSIUM CL 20 MEQ TAB PO SCH ×2 (09:59→13:50)
[2017-02-27] MEDS: FUROSEMIDE 40 MG/4 ML VIAL IVP SCH ×3 (10:00→21:36)
[2017-02-27] MEDS: DILTIAZEM CD 120 MG CAP PO SCH ×2 (10:04→13:46)
--- NOTE | 2017-02-27 10:28 | HOSPPROG ---
Hospitalist Progress Note Assessment/Plan: 76 yo female with h/o A fib presents in acute heart failure, admitted this am by Dr. Cruz. Chart reviewed, pt seen and examined. 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 Discussed with Dr. Hayden. -neurology consulted -carotid a. ultrasound -cont anticoagulation Cognitive impairment - MRI also showed amyloid angiopathy, unclear if this is contributing to cognitive changes vs an alzheimer's picture. Discussed case with Dr. Turcios, PCP and her son, Rojelio. 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 -full cog eval per speech -neurology following -unsafe to care for herself at home, will need 24 hr supervision, likely SNF Acute hypoxemic respiratory failure 2/2 acute heart failure - BNP trending down , but still volume up with peripheral edema, bibasilar crackles and JVD. Echo c /w right heart failure, nl EF, but mod pulmonary hypertension, severe TR and increased RV pressures. INR supratherapeutic on arrival making PE unlikely. -Increase IV Lasix to TID. -Follow daily weights, I&O's. -cardiology following A fib with RVR - HR better controlled, off dilt drip, transitioned to po dilt, along with toprol. Reviewed telemetry. -change to Dilt CD, uptitrate for rate control as needed -cont anticoagulation MVR on chronic anticoagulation - INR goal 2.5-3.5, slightly supratherapeutic on arrival. Now therapeutic, pharmacy dosing coumadin CAD s/p CABG - Chest pain free. Cont imdur, statin, Toprol as BP tolerates BEVERLY - Cr improved from 1.8 to 0.8 with diuresis Hyponatremia - in setting of aggressive diuresis -fluid restrict, follow Hyponatremia - 2/2 high dose lasix -cont aggressive replacement, on K protocol Full code Dispo - cont inpt. CM involved. Considering palliative care consult when son arrives mid to late week. We should readdress code status. Subjective: Pt doing better. Denies CP or SOB. No palpitations. She is frustrated with her memory problems, can't remember her grandson's name. Objective: Vital Signs Temp Pulse Resp BP Pulse Ox 36.6 C 103 H 20 109/56 L 90 L 02/27/17 07:42 02/27/17 10:04 02/27/17 07:42 02/27/17 10:04 02/27/17 07:42 Laboratory Results 02/25/17 03:42 02/27/17 03:35 02/26/17 02/27/17 02/28/17 05:59 05:59 05:59 Intake Total 850 1640 Output Total 1350 2200 Balance -500 -560 PT 24.6 SEC (12.0-15.0) H 02/27/17 03:35 INR 2.20 (0.83-1.16) H 02/27/17 03:35 - Physical Exam Constitutional: chronically ill appearing, cachectic Eyes: PERRL Ears, Nose, Mouth, Throat: moist mucous membranes Cardiovascular: irregularly irregular Respiratory: no respiratory distress, inspiratory crackles Gastrointestinal: normoactive bowel sounds, soft, non-tender abdomen Skin: warm Musculoskeletal: other (2+ b/l LE pitting edema) Psychiatric: anxious, poor memory ICD10 Worksheet Patient Problems: Problems Problem Status Onset Afib Acute Dehydration Acute Hyponatremia Acute
--- NOTE | 2017-02-27 12:27 | PDCARPN ---
Cardiology Progress Note Chief Complaint: RHF/AF Assessment/Plan: Assessment: 76-y/o F followed by Dr. Johnson cardiology as outpatient, admitted with weakness and fatigue. PMH of MV repair/ 2V CABG, likely permanent AF, asthma/ COPD, ongoing tobacco abuse, anxiety, possible dementia. Found to have severe R heart dysfunction and fluid overload. #. RHF: [id number] still has fluid overload by examination of ankles/ abdominal distention and rales continue IV lasix #. AF: rate control appears improved continue oral Dilt 120 daily in addition to home dosing of Metoprolol succinate [id number] elevated/ on AC with Coumadin #. pleural effusion: large by CXR upon arrival to ED if patient requires thoracentesis, she would need bridging will defer this for now #. acute CVA: MRI of brain shows acute L anterior temporal lobe stroke as well as subacute infarct R inner hemispheric fissure seen by neurology #. hyponatremia: likely due to hypervolemia will fluid restrict #. severe TR: torrential on echo continue diuresis #. MV repair: appears appropriately functioning #. abdominal distention: will obtain abdominal CXR to evaluate for ascites versus gas Plan: Continue IV diuresis Obtain abd XR Fluid restrict to 1500 mL daily 02/27/17 12:19 Subjective: Feels improved. No pnd/orthopnea, dyspnea currently. Reviewed/Discussed With: hospitalist Objective: Vital Signs (8 Hrs) Temp Pulse Resp BP Pulse Ox 02/27/17 11:33 98.0 F 108 H 24 H 116/70 94 02/27/17 10:04 103 H 109/56 L 02/27/17 09:58 103 H 109/56 L 02/27/17 09:55 109/56 L 02/27/17 07:42 97.8 F 103 H 20 109/56 L 90 L 02/27/17 07:00 107 H 02/27/17 06:02 93 113/67 Intake/Output (24 Hrs) 02/26/17 02/27/17 02/28/17 05:59 05:59 05:59 Intake Total 850 1640 250 Output Total 1350 2200 700 Balance -500 -560 -450 Intake: Oral (ml) 850 1640 250 Output: Urine (ml) 1350 2200 700 Bedside Commode 950 Toilet 400 2200 700 Other: Weight 45.8 kg Intake Quantity Yes Yes Sufficient Number of Voids Toilet 1 2 Result Diagrams: 02/25/17 03:42 02/27/17 03:35 Cardiac Labs: Cardiac Lab Results (72 Hrs) 02/25/17 03:42 CK-MB (CK-2) Fraction 2.57 Troponin I 0.044 H EKG: personally interpreted 02/24 ecg: AF RVR, slow RWP, lat infarct Telemetry: AF CVR Echocardiogram: reviewed with Dr. Joe: normal LV size and systolic function, RV severely dilated and severely dysfunctional, torrential TR, RVSP 45, MV repair with mean gradient 6 mmHg, mild MR, large pleural effusion - Physical Exam Constitutional: no apparent distress, cachectic Eyes: anicteric sclera Ears, Nose, Mouth, Throat: moist mucous membranes Cardiovascular: systolic murmur, irregularly irregular Respiratory: reduced air movement, inspiratory crackles, dullness to percussion Gastrointestinal: normoactive bowel sounds, ascites, No guarding, No rebound Genitourinary: no suprapubic tenderness, No cordova in urethra Skin: warm, other (brawny edema in lower extremities) Psychiatric: cooperative, interactive ICD10 Worksheet Patient Problems: Problems Problem Status Onset Afib Acute Dehydration Acute Hyponatremia Acute
--- NOTE | 2017-02-27 13:46 | NEUROPROG ---
Assessment: Addendum: NIHSS of Zero. Objective: Vital Signs Temp Pulse Resp BP Pulse Ox 36.7 C 108 H 24 H 116/70 94 02/27/17 11:33 02/27/17 11:33 02/27/17 11:33 02/27/17 11:33 02/27/17 11:33 Laboratory Results 02/25/17 03:42 02/27/17 03:35 02/26/17 02/27/17 02/28/17 05:59 05:59 05:59 Intake Total 850 1640 250 Output Total 1350 2200 700 Balance -500 -560 -450 PT 24.6 SEC (12.0-15.0) H 02/27/17 03:35 INR 2.20 (0.83-1.16) H 02/27/17 03:35 Allergies/Adverse Reactions: Sulfa (Sulfonamide Antibiotics) Allergy (Verified 02/24/17 21:41)
[2017-02-27] MEDS ORDERED: WARFARIN SODIUM 2.5 MG TAB PO ONE (16:00)
[2017-02-27 18:33] LABS: POTASSIUM 3.4 mEq/L (3.5-5.2)
[2017-02-27] MEDS ORDERED: POTASSIUM CL 10 MEQ TAB PO ONE (22:27)
[2017-02-28 04:47] LABS: INR 2.13 (0.83-1.16)
[2017-02-28 05:17] LABS: ANION GAP 8 mEq/L (8-16); CALCIUM 8.4 mg/dL (8.5-10.4); CARBON DIOXIDE 35 mEq/l (22-31); CHLORIDE 88 mEq/L (97-110); CREATININE 0.8 mg/dL (0.6-1.0); GLOMERULAR FILTRATION RATE > 60; GLUCOSE 137 mg/dL (70-100); POTASSIUM 3.4 mEq/L (3.5-5.2); SODIUM 131 mEq/L (134-144)
[2017-02-28] MEDS ORDERED: POTASSIUM CL 10 MEQ TAB PO ONE (07:25)
--- NOTE | 2017-02-28 09:03 | NEUROPROG ---
Assessment: Today I spent 25 minutes in [id number] discussion reviewing the case with the patient and having further discussions with providers and trying to coordinate a plan for a very difficult challenge. Yesterday I spoke to her son for about 10 minutes on the telephone and updated him of the situation. The patient has had a stroke and has a symptomatic left internal carotid artery stenosis which is nearly occlusive and with typically be an indication for surgical treatment within 2 weeks or possible stenting. Patient says she would want to pursue intervention if possible. She seems to comprehend the idea of having a stroke, although she can also become slightly confused about the details. From my perspective, she is high risk for stroke and trying to minimize that risk is ideal with either endarterectomy or stenting, but we would need full medical clearance and cardiology clearance for the safety of this as well as support from her son who has medical power of film touch up inspector. Course, her ability to make her own decision is the most important factor in driving our decision. She said she might want to leave the hospital today, to which I explained that is not possible. I explained that this is because of lack of a safe medical condition for discharge from the hospital. She is hoping that her different providers can be involved in helping to make the decisions and we will try our best to coordinate with many providers as possible. Subjective: This morning the patient reports that she did not sleep very well. She says that she is constipated, but she has her appetite back, so she is eating. We had a detailed discussion about the findings over nearly occluded left internal carotid artery on the ultrasound. Objective: Vital Signs Temp Pulse Resp BP Pulse Ox 36.6 C 86 18 95/71 L 91 L 02/28/17 08:00 02/28/17 08:00 02/28/17 08:00 02/28/17 08:00 02/28/17 08:00 Laboratory Results 02/25/17 03:42 02/28/17 03:12 02/27/17 02/28/17 03/01/17 05:59 05:59 05:59 Intake Total 1640 1558 Output Total 2200 2600 Balance -560 -1042 PT 24.0 SEC (12.0-15.0) H 02/28/17 03:12 INR 2.13 (0.83-1.16) H 02/28/17 03:12 She is alert and attentive and more oriented and has a little better ability to communicate without so much tangentiality, but she still has periods where she lacks insight or becomes very specific about wanting to leave the hospital. Allergies/Adverse Reactions: Sulfa (Sulfonamide Antibiotics) Allergy (Verified 02/24/17 21:41)
--- NOTE | 2017-02-28 09:13 | HOSPPROG ---
Hospitalist Progress Note Assessment/Plan: 76 yo female with h/o A fib presents in acute heart failure, admitted this am by Dr. Cruz. Chart reviewed, pt seen and examined. 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 Discussed with Dr. Hayden. Carotid a. u/s showed critical 99% stenosis on the left. Discussing possible endarterectomy vs stent. Need cardiology opinion on surgical risk. -cont anticoagulation -will discuss with cards and vascular surgery Cognitive impairment - MRI confirmed CVA and also showed amyloid angiopathy, unclear if latter is contributing to cognitive changes vs an alzheimer's picture. She was working as an administrative supervisor at up until recently. -full cog eval per speech recommends ongoing skilled DIRECTOR OF THERAPY SERVICES services -neurology following -unsafe to care for herself at home, will need 24 hr supervision, likely SNF Acute hypoxemic respiratory failure 2/2 acute heart failure - BNP trending down , but still volume up with peripheral edema, bibasilar crackles, pleural effusion and JVD. Echo c/w severe right heart failure, nl EF, but mod pulmonary hypertension, severe TR and increased RV pressures. INR supratherapeutic on arrival making PE unlikely. -Cont IV Lasix -Follow daily weights, I&O's -cardiology following A fib with RVR - HR better controlled, off dilt drip, transitioned to po dilt, along with toprol. Reviewed telemetry. A bit hypotensive yesterday after Dilt CD. -change back to q6h dilt given hypotension yesterday -cont anticoagulation MVR on chronic anticoagulation - INR goal 2.5-3.5, slightly supratherapeutic on arrival. Now therapeutic, pharmacy dosing coumadin CAD s/p CABG - Chest pain free. Cont imdur, statin, Toprol as BP tolerates Abdominal distention - xray suggestive of ileus vs distal colonic obstruction -CT abd/pelvis today for further evaluation AAA - 4.6 cm, will need close f/u. BEVERLY - Cr improved from 1.8 to 0.8 with diuresis Hyponatremia - in setting of hypervolemia, improving with diuresis -cont Lasix -fluid restrict, follow Hypokalemia - on IV Lasix, cont aggressive replacement plus protocol. Full code Dispo - cont inpt. CM involved. Considering palliative care consult when son arrives mid to late week. We should readdress code status and review goals of care. Subjective: pt remains quite confused and frustrated. she c/o abdominal discomfort. denies CP or SOB. No fevers. Appetite not great. Objective: Vital Signs Temp Pulse Resp BP Pulse Ox 36.6 C 86 18 95/71 L 91 L 02/28/17 08:00 02/28/17 08:00 02/28/17 08:00 02/28/17 08:00 02/28/17 08:00 Laboratory Results 02/25/17 03:42 02/28/17 03:12 02/27/17 02/28/17 03/01/17 05:59 05:59 05:59 Intake Total 1640 1558 Output Total 2200 2600 Balance -560 -1042 PT 24.0 SEC (12.0-15.0) H 02/28/17 03:12 INR 2.13 (0.83-1.16) H 02/28/17 03:12 - Physical Exam Constitutional: chronically ill appearing, cachectic Eyes: PERRL Ears, Nose, Mouth, Throat: moist mucous membranes Cardiovascular: regular rate and rhythym Respiratory: no respiratory distress, reduced air movement, inspiratory crackles Gastrointestinal: normoactive bowel sounds, other (soft, +mild-moderate distention, non-tender) Skin: warm Musculoskeletal: full muscle strength Psychiatric: anxious, poor insight, poor memory ICD10 Worksheet Patient Problems: Problems Problem Status Onset Afib Acute Chronic Disease [facility]/Transitional Care Acute Dehydration Acute Hyponatremia Acute
[2017-02-28] MEDS: ISOSORBIDE MONONITRATE 30 MG TAB.SR PO SCH ×2 (09:52→20:45)
[2017-02-28] MEDS: METOPROLOL SUCCINATE XR 25 MG TAB PO SCH (09:52)
[2017-02-28] MEDS: ROSUVASTATIN CALCIUM 10 MG TAB PO SCH (09:53)
[2017-02-28] MEDS: DILTIAZEM 30 MG TAB PO SCH ×4 (09:54→23:12)
[2017-02-28] MEDS: FUROSEMIDE 40 MG/4 ML VIAL IVP SCH ×3 (09:55→21:36)
[2017-02-28] MEDS: NICOTINE 21 MG/24 HR PATCH TD SCH (09:55)
[2017-02-28] MEDS: POTASSIUM CL 20 MEQ TAB PO SCH ×2 (09:55→13:12)
[2017-02-28] MEDS: SENNOSIDES/DOCUSATE SODIUM TAB PO SCH ×2 (09:55→20:44)
[2017-02-28] MEDS ORDERED: IOPAMIDOL (ISOVUE-300) 100 ML BTL IV ONE (10:26)
[2017-02-28] MEDS: PANTOPRAZOLE SODIUM 40 MG in NS 100 ML IV SCH (11:16)
[2017-02-28 15:51] LABS: ALBUMIN 3.1 g/dL (3.5-5.0); BILIRUBIN,TOTAL 1.4 mg/dL (0.1-1.4); BILIRUBIN-CONJUGATED 0.7 mg/dL (0.0-0.5); BILIRUBIN-UNCONJUGATED 0.7 mg/dL (0.0-1.1); TOTAL PROTEIN 6.5 g/dL (6.3-8.2)
[2017-02-28] MEDS ORDERED: WARFARIN SODIUM 4 MG TAB PO ONE (16:00)
[2017-02-28] MEDS: POLYETHYLENE GLYCOL 3350 17 GM PKT PO PRN (16:24)
--- NOTE | 2017-02-28 16:46 | PDCARPN ---
Cardiology Progress Note Assessment/Plan: Assessment/plan: 76-year-old female with a history of mitral valve repair and CABG at the [facility]. She also has permanent atrial fibrillation. We have requested records from the [facility]. Her kiln packer is Dr. Johnson. She was admitted February 24 with weakness and dyspnea. She was found to be in profound right heart failure with severe tricuspid regurgitation. Left ventricular systolic function is preserved. This does not appear to be acute coronary syndrome. As part of her evaluation for altered mental status she had a brain MRI showing a left anterior temporal infarction. She was then found to have a near total occlusion of her left internal carotid artery. She has been seen by Dr. Hayden. 1. Acute diastolic left heart failure with right heart failure: She is diuresing. She is now rate controlled. It is possible that rapid AFib tipped her into heart failure. As mentioned, I do not think she has acute coronary syndrome. 2. Atrial fibrillation: Rate controlled. On warfarin. 3. Valvular heart disease: Mitral valve repair which appears intact on our echo here. Severe tricuspid regurgitation. Diuresis. 4. Altered mental status and evidence of stroke on brain MRI: Etiology appears to be near occlusive disease of the left carotid artery. She does require carotid endarterectomy to reduce the risk of future neurological events. At this point, she is a high risk patient given her recent heart failure, but she is at high risk for recurrent stroke. Ideally, she would be more euvolemic prior to her surgery. I think this can be achieved in the next couple of days. We have requested records from the [facility], as I would like to see if she has had any recent stress tests and also compare any past echoes. I have increased her Crestor to 20 mg daily. She is anticoagulated with warfarin. Would also add aspirin. Control blood pressure. 5. Carotid disease: Per #4. 6. History of 2 vessel bypass at the time of her mitral valve surgery. No chest pain. Minimally elevated troponins likely reflect heart failure. Increase statin. Add aspirin. Case discussed with Dr. Desir and Dr. Hayden. 02/28/17 16:49 Subjective: Renée denies SOB or CP. She complains of constipation Objective: Vital Signs (8 Hrs) Temp Pulse Resp BP Pulse Ox 02/28/17 15:33 36.8 C 79 16 97/53 L 95 02/28/17 13:15 86 116/74 02/28/17 11:38 36.4 C 86 14 116/74 94 02/28/17 09:54 86 95/71 L 02/28/17 09:52 86 95/71 L 02/28/17 09:00 77 Intake/Output (24 Hrs) 02/27/17 02/28/17 03/01/17 05:59 05:59 05:59 Intake Total 1640 1558 Output Total 2200 2600 200 Balance -560 -1042 -200 Intake: Oral (ml) 1640 1510 IV Intake (ml) 48 Output: Urine (ml) 2200 2600 200 Bedside Commode 700 Toilet 2200 1900 200 Other: Weight 45 kg Intake Quantity Yes Sufficient Number of Voids Bedside Commode 1 Toilet 1 2 1 Number of Stools Bedside Commode 1 NAD, slightly irritable JVP 14 Irreg irreg. II/ holosystolic murmur LLSB Decreased BS both lung bases Persistent 1+ pitting edema bilat LE Result Diagrams: 02/25/17 03:42 02/28/17 03:12 ICD10 Worksheet Patient Problems: Problems Problem Status Onset Chronic Disease Mgmt/Transitional Care Acute Afib Acute Dehydration Acute Hyponatremia Acute
[2017-02-28] MEDS: ASPIRIN 81 MG CHEWABLE TAB PO SCH (17:44)
[2017-02-28 19:13] LABS: POTASSIUM 5.4 mEq/L (3.5-5.2)
--- NOTE | 2017-02-28 19:30 | SOAPPROG ---
KATERYNA Progress Note Assessment/Plan: Assessment: 76 yo with stroke and 99% occlusion L carotid artery/ Will get CTA. Dr. Blank back next week and will schedule L CEA Plan: 02/28/17 19:29 Objective: Vital Signs Temp Pulse Resp BP Pulse Ox 36.8 C 79 16 97/53 L 95 02/28/17 15:33 02/28/17 17:44 02/28/17 15:33 02/28/17 17:44 02/28/17 15:33 Laboratory Results 02/25/17 03:42 02/28/17 18:45 02/27/17 02/28/17 03/01/17 05:59 05:59 05:59 Intake Total 1640 1558 710 Output Total 2200 2600 500 Balance -560 -1042 210 PT 24.0 SEC (12.0-15.0) H 02/28/17 03:12 INR 2.13 (0.83-1.16) H 02/28/17 03:12 ICD10 Worksheet Patient Problems: Problems Problem Status Onset Afib Acute Chronic Disease [facility]/Transitional Care Acute Dehydration Acute Hyponatremia Acute
--- NOTE | 2017-02-28 21:55 | GCON ---
[f rep st] CONSULTATION GENERAL AND VASCULAR SURGERY CONSULTATION REASON FOR CONSULT: We have been asked to consult by the hospitalist service in light of a carotid ultrasound showing 99% left carotid stenosis after stroke. HISTORY OF PRESENT ILLNESS: The patient is a 76-year-old female with a history of dementia, coronary artery disease, atrial fibrillation who presented to the emergency department with complaints of generalized fatigue. Most of my history is obtained from other providers' notes as she is a poor historian. She recalls trying to write some checks on Monday night and not being able to think clearly. Since being admitted to the hospital, she has had a brain MRI, which shows evidence of a subacute infarct in the left temporal lobe. Neurology consulted and obtain a carotid Doppler study which shows near 99% stenosis of the left internal carotid artery. Peak velocities were measured at 673 cm/second. Of note, she has also been seen by Cardiology and has been found to be in heart failure. She has been gently diuresed. She did have an elevated creatinine the other day of 1.2, but it has since normalized. She had a CT scan of her abdomen today to rule out bowel obstruction versus ileus. She appears to have constipation and ileus problems. PAST MEDICAL HISTORY: As described above includes coronary artery disease status post CABG, atrial fibrillation on Coumadin, peripheral vascular disease, dementia, asthma versus COPD. PAST SURGICAL HISTORY: CABG as described above and also mitral valve repair. OUTPATIENT MEDICATIONS: Coumadin, Lasix, hydrochlorothiazide, metoprolol, albuterol, Klor-Con Crestor and Spiriva. ALLERGIES: Sulfa. SOCIAL HISTORY: The patient lives alone. She has 2 sons and a daughter who had committed suicide in her 40s. She has many grandchildren. Her sons live in [place] and outside of [place]. She has a son who has medical power of peer tutor, who is supposed to be here this . She has a history of tobacco use but does not drink alcohol. FAMILY HISTORY: Not obtained. REVIEW OF SYSTEMS: Please see HPI. SPECIAL TESTS: Please see report for details, but an echocardiogram shows an ejection fraction of 75% without valve vegetations. Brain MRI shows a left anteromedial temporal subacute infarct in the region of the hippocampus. Carotid ultrasound shows approximately 99% stenosis of the left internal carotid artery. No significant right internal carotid artery stenosis seen. CT scan of the abdomen and pelvis showed mild to moderate constipation with gas present predominantly and large bowel loops without obstruction. IMPRESSION: This is a 76-year-old female with multiple medical problems predominantly cardiac also with dementia now found to have likely severe critical left internal carotid artery stenosis. PLAN: An ultrasound is an easy and accessible screening test, but we will go ahead and order a CT angiogram of the neck. I would like to wait until tomorrow as she had some contrast dye today for her CT of her abdomen and had recent creatinine elevations. Once we get results from her CT angiogram, I will review them with a physician. She could be a candidate for a carotid endarterectomy; however, this would need to be discussed with both Cardiology and her family given her cardiac issues and dementia. Addendum: I personally saw and examined this patient. I reviewed her carotid ultrasound as well as the notes in the chart. She is sitting up in bed and is appropriate. No obvious residual defects from stroke. Proceed with CTA and possible CEA with Dr. Blank next week /[id number]/MODL MTDD
[2017-03-01 04:57] LABS: INR 2.15 (0.83-1.16); PROTIME(PATIENT) 24.2 SEC (12.0-15.0)
[2017-03-01] MEDS: DILTIAZEM 30 MG TAB PO SCH ×4 (05:07→23:40)
[2017-03-01 05:09] LABS: ANION GAP 8 mEq/L (8-16); CALCIUM 8.6 mg/dL (8.5-10.4); CARBON DIOXIDE 32 mEq/l (22-31); CHLORIDE 94 mEq/L (97-110); CREATININE 0.7 mg/dL (0.6-1.0); GLOMERULAR FILTRATION RATE > 60; GLUCOSE 87 mg/dL (70-100); POTASSIUM 4.5 mEq/L (3.5-5.2); SODIUM 134 mEq/L (134-144)
--- NOTE | 2017-03-01 09:19 | NEUROPROG ---
Assessment: Today I spent 25 minutes in [id number] discussion reviewing the case with the patient and having further discussions with providers and trying to coordinate a plan for a very difficult challenge. Yesterday I spoke to her son for about 10 minutes on the telephone and updated him of the situation. The patient has had a stroke and has a symptomatic left internal carotid artery stenosis which is nearly occlusive and with typically be an indication for surgical treatment within 2 weeks or possible stenting. Patient says she would want to pursue intervention if possible. She seems to comprehend the idea of having a stroke, although she can also become slightly confused about the details. From my perspective, she is high risk for stroke and trying to minimize that risk is ideal with either endarterectomy or stenting, but we would need full medical clearance and cardiology clearance for the safety of this as well as support from her son who has medical power of senior attorney. Course, her ability to make her own decision is the most important factor in driving our decision. She said she might want to leave the hospital today, to which I explained that is not possible. I explained that this is because of lack of a safe medical condition for discharge from the hospital. She is hoping that her different providers can be involved in helping to make the decisions and we will try our best to coordinate with many providers as possible. 03/01/17: Spent 15 units of floor time today [id number] discussion regarding the patient 's case and treatment protocol. I agree with the approach of carotid endarterectomy as outlined for next week. The patient does have some times in which her relative insight might be limited, but she is clearly able to articulate understanding about some of the risks when I have spoken to her including understanding my explanation of the statistical risks associated with best medical therapy verses surgical approaches. She makes it very clear that she does not want to have a stroke and understands that this procedure has some risk but benefits outweigh those risks in terms of stroke prevention. Objective: Vital Signs Temp Pulse Resp BP Pulse Ox 36.4 C 87 18 96/57 L 99 03/01/17 07:45 03/01/17 07:45 03/01/17 07:45 03/01/17 07:45 03/01/17 07:45 Laboratory Results 02/25/17 03:42 03/01/17 03:40 02/28/17 03/01/17 03/02/17 05:59 05:59 05:59 Intake Total 1558 860 Output Total 2600 800 900 Balance -1042 60 -900 PT 24.2 SEC (12.0-15.0) H 03/01/17 03:40 INR 2.15 (0.83-1.16) H 03/01/17 03:40 Allergies/Adverse Reactions: Sulfa (Sulfonamide Antibiotics) Allergy (Verified 02/24/17 21:41)
[2017-03-01] MEDS: PANTOPRAZOLE SODIUM 40 MG in NS 100 ML IV SCH (09:50)
[2017-03-01] MEDS: ASPIRIN 81 MG CHEWABLE TAB PO SCH (09:51)
[2017-03-01] MEDS: SENNOSIDES/DOCUSATE SODIUM TAB PO SCH ×2 (09:51→21:03)
[2017-03-01] MEDS: ROSUVASTATIN CALCIUM 20 MG TAB PO SCH (09:51)
[2017-03-01] MEDS: FUROSEMIDE 40 MG/4 ML VIAL IVP SCH ×4 (09:51→21:03)
[2017-03-01] MEDS: ISOSORBIDE MONONITRATE 30 MG TAB.SR PO SCH (09:52)
[2017-03-01] MEDS: METOPROLOL SUCCINATE XR 25 MG TAB PO SCH (09:52)
[2017-03-01] MEDS ORDERED: IOPAMIDOL (ISOVUE 370) 100 ML BTL IV ONE (10:50)
--- NOTE | 2017-03-01 11:38 | PDCARPN ---
Cardiology Progress Note Assessment/Plan: Assessment/plan: 76-year-old female with a history of mitral valve repair and CABG at the [facility]. She also has permanent atrial fibrillation. We have requested records from the [facility]. Her folded cloth taper is Dr. Johnson. She was admitted February 24 with weakness and dyspnea. She was found to be in right heart failure with severe tricuspid regurgitation. Left ventricular systolic function is preserved but she has diastolic left heart failure. This does not appear to be acute coronary syndrome. As part of her evaluation for altered mental status she had a brain MRI showing a left anterior temporal infarction. She was then found to have a near total occlusion of her left internal carotid artery. She has been seen by Dr. Hayden. 1. Acute diastolic left heart failure with right heart failure: She is diuresing. She is now rate controlled. It is possible that rapid AFib tipped her into heart failure. I do not think she has acute coronary syndrome. 2. Atrial fibrillation: Rate controlled. On warfarin. 3. Valvular heart disease: Mitral valve repair which appears intact on our echo here. Severe tricuspid regurgitation. Diuresis. 4. Altered mental status and evidence of stroke on brain MRI: Etiology appears to be near occlusive disease of the left carotid artery. She does require carotid endarterectomy to reduce the risk of future neurological events. At this point, she is a high risk patient given her recent heart failure, but she is at high risk for recurrent stroke. Ideally, she would be more euvolemic prior to her surgery. I think this can be achieved in the next couple of days. We have requested records from the [facility], as I would like to see if she has had any recent stress tests and also compare any past echoes. I have increased her Crestor to 20 mg daily. She is anticoagulated with warfarin. Also added aspirin. Control blood pressure. 5. Carotid disease: Per #4. 6. History of 2 vessel bypass at the time of her mitral valve surgery. No chest pain. Minimally elevated troponins likely reflect heart failure. Increase statin. Add aspirin. 03/01/17 11:38 Subjective: She reports that her breathing has improved. She still feels constipated. Objective: Vital Signs (8 Hrs) Temp Pulse Resp BP Pulse Ox 03/01/17 09:52 85 96/57 L 03/01/17 09:17 85 03/01/17 07:45 36.4 C 87 18 96/57 L 99 03/01/17 04:00 36.9 C 95 19 119/62 96 Intake/Output (24 Hrs) 02/28/17 03/01/17 03/02/17 05:59 05:59 05:59 Intake Total 1558 860 Output Total 2600 800 900 Balance -1042 60 -900 Intake: Oral (ml) 1510 740 IV Intake (ml) 48 20 IV Infused (ml) 100 Pantoprazole Sodium 40 mg 100 In Ns 100 ml @ 200 mls/ hr IV DAILY [facility] Rx#: [id number] Output: Urine (ml) 2600 800 900 Bedside Commode 700 900 Toilet 1900 800 Other: Weight 45 kg 45.3 kg Intake Quantity Yes Sufficient Number of Voids Bedside Commode 1 Toilet 2 1 Number of Stools Bedside Commode 1 No acute distress. JVP 14. Irregular regular rhythm. 2/6 holosystolic murmur left lower sternal border. No S3 Lungs decreased breath sounds at both bases no wheezes rhonchi or rales Extremities show improved but still persistent 1+ pitting edema to the midshin bilaterally Result Diagrams: 02/25/17 03:42 03/01/17 03:40 Telemetry: Atrial fibrillation with controlled ventricular response ICD10 Worksheet Patient Problems: Problems Problem Status Onset Chronic Disease Mgmt/Transitional Care Acute Afib Acute Dehydration Acute Hyponatremia Acute
--- NOTE | 2017-03-01 15:04 | HOSPPROG ---
Hospitalist Progress Note Assessment/Plan: 76 yo female with h/o A fib presents in acute heart failure, rapid A fib, found to have subacute CVA. Subacute ischemic CVA - with language disturbance and cognitive impairment, both improved. Discussed with Dr. Hayden. Carotid a. u/s showed critical 99 % stenosis on the left. Vascular surgery consult obtained, planning for CEA next week. Aim to diurese in the meantime. Cards ok with surgical plans given high risk for stroke without surgery. -cont anticoagulation -Neurology following -D/W Dr Blank, who plans to reverse INR prior to surgery. He will see pt this weekend. Cognitive impairment - This is much improved today. 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 -full cog eval per speech recommends ongoing skilled INTERNAL MEDICINE SPECIALIST services Acute hypoxemic respiratory failure 2/2 acute heart failure - BNP trending down , but still volume up with peripheral edema, bibasilar crackles, pleural effusion and JVD. Echo c/w severe right heart failure, nl EF, but mod pulmonary hypertension, severe TR and increased RV pressures. INR supratherapeutic on arrival making PE unlikely. -Cont IV Lasix -Follow daily weights, I&O's -cardiology following A fib with RVR - HR better controlled, off dilt drip, transitioned to po dilt, along with toprol. Reviewed telemetry. -changed back to q6h dilt given hypotension on Dilt CD -cont anticoagulation, INR therapeutic, pharmacy dosing Mitral valve replacement - stable per recent echo CAD s/p CABG - Chest pain free. Cont imdur, statin, Toprol Ileus - improved, remains constipated. Cont bowel protocol. AAA - 4.6 cm, will need close f/u. BEVERLY - Cr improved from 1.8 to 0.8 with diuresis Hyponatremia - in setting of hypervolemia, improving with diuresis -cont Lasix -fluid restrict, follow Hypokalemia - on IV Lasix, cont aggressive replacement plus protocol. Full code Dispo - cont inpt. CM involved. Ethics consult today to help determine decisional capacity given her waxing and waning cognitive impairment previously. Her mentation is much more clear today. She is able to have more articulate conversations and understands risks / benefits associated with her decisions. At this time I deem her decisional. She confirms to me that she wishes to remain DNR, but still wants to proceed with CEA. Will likely need SNF at dispo. Subjective: Pt up in chair, appetite improved. She is mentating much more clearly today. She is more articulate, conversational, able to have informed discussion about her medical decisions. Denies CP, SOB. Wants to proceed with CEA. Objective: Vital Signs Temp Pulse Resp BP Pulse Ox 37.1 C 84 22 H 112/68 94 03/01/17 11:00 03/01/17 12:27 03/01/17 11:00 03/01/17 12:27 03/01/17 11:00 Laboratory Results 02/25/17 03:42 03/01/17 03:40 02/28/17 03/01/17 03/02/17 05:59 05:59 05:59 Intake Total 1558 860 Output Total 2600 800 900 Balance -1042 60 -900 PT 24.2 SEC (12.0-15.0) H 03/01/17 03:40 INR 2.15 (0.83-1.16) H 03/01/17 03:40 - Physical Exam Constitutional: no apparent distress, cachectic Eyes: PERRL Ears, Nose, Mouth, Throat: moist mucous membranes Cardiovascular: irregularly irregular Respiratory: no respiratory distress, reduced air movement Gastrointestinal: normoactive bowel sounds, other (mild distention, non-tender abdomen) Skin: warm Musculoskeletal: other (2+ b/l LE edema) Neurologic: AAOx3 Psychiatric: interacting appropriately ICD10 Worksheet Patient Problems: Problems Problem Status Onset Afib Acute Chronic Disease Mgmt/Transitional Care Acute Dehydration Acute Hyponatremia Acute
[2017-03-01] MEDS: WARFARIN SODIUM 2.5 MG TAB PO SCH (17:05)
--- NOTE | 2017-03-01 17:39 | SOAPPROG ---
KATERYNA Progress Note Assessment/Plan: Assessment/Plan: 76 Y F multiple comorbidities, including afib on warfarin, CHF , hx CABG, now with findings of subacute left CVA and severe L carotid stenosis. Imaging d/w Dr. Sahu and personally reviewed by myself. +90-95% critical L carotid stenosis. Would recommend L CEA, which patient is amenable (she tells me she has refused surgery for other problems in the past). Will need to d/w son , mode JORDAN, who is scheduled to arrive in [place] tomorrow. Tentatively plan for L CEA next week, potentially depending on Dr. Blank' and family's decision making. Also, incidentally found to have a small but somewhat spiculated apical lung mass. Patient tells me she had some kind of chest mass treated with radiation within last year and had films done in [place]. Would like to get films for comparison. 03/01/17 17:33 Objective: Vital Signs Temp Pulse Resp BP Pulse Ox 36.6 C 85 28 H 106/54 L 100 03/01/17 15:20 03/01/17 15:20 03/01/17 15:20 03/01/17 15:23 03/01/17 15:20 Laboratory Results 02/25/17 03:42 03/01/17 03:40 02/28/17 03/01/17 03/02/17 05:59 05:59 05:59 Intake Total 1558 860 Output Total 2600 800 900 Balance -1042 60 -900 PT 24.2 SEC (12.0-15.0) H 03/01/17 03:40 INR 2.15 (0.83-1.16) H 03/01/17 03:40 ICD10 Worksheet Patient Problems: Problems Problem Status Onset Afib Acute Chronic Disease Mgmt/Transitional Care Acute Dehydration Acute Hyponatremia Acute
[2017-03-01 19:33] LABS: POTASSIUM 3.9 mEq/L (3.5-5.2)
[2017-03-01] MEDS ORDERED: POTASSIUM CL 10 MEQ TAB PO ONE (20:09)
[2017-03-02 05:17] LABS: % IMMATURE GRANULYOCYTES 0.2 % (0.0-1.1); ABSOLUTE IMMATURE GRANULOCYTES 0.01 10^3/uL (0.00-0.10); ADD DIFF? NO; ADD MORPH? NO; ADD SCAN? NO; ATYPICAL LYMPHOCYTE FLAG 30 (0-99); FRAGMENT RBC FLAG 20 (0-99); HEMOGLOBIN 12.2 g/dL (12.6-16.3); LEFT SHIFT FLG 0 (0-99); LIPEMIA HEMOLYSIS FLAG 80 (0-99); MEAN CELL HEMOGLOBIN 29.3 pg (27.9-34.1); MEAN CELL HEMOGLOBIN CONCENTR. 31.3 g/dL (32.4-36.7); MEAN CELL VOLUME 93.5 fL (81.5-99.8); MEAN PLATELET VOLUME 10.2 fL (8.7-11.7); PLATELET CLUMPS FLAG 0 (0-99); PLATELET COUNT 138 10^3/uL (150-400); RED BLOOD CELL COUNT 4.17 10^6/uL (4.18-5.33); RED CELL DISTRIBUTION WIDTH 17.2 % (11.5-15.2)
[2017-03-02] MEDS: DILTIAZEM 30 MG TAB PO SCH ×3 (05:25→17:15)
[2017-03-02 05:26] LABS: ANION GAP 6 mEq/L (8-16); CALCIUM 8.3 mg/dL (8.5-10.4); CARBON DIOXIDE 34 mEq/l (22-31); CHLORIDE 94 mEq/L (97-110); CREATININE 0.6 mg/dL (0.6-1.0); GLOMERULAR FILTRATION RATE > 60; GLUCOSE 95 mg/dL (70-100); INR 2.5 (0.83-1.16); POTASSIUM 3.8 mEq/L (3.5-5.2); PROTIME(PATIENT) 27.3 SEC (12.0-15.0); SODIUM 134 mEq/L (134-144)
[2017-03-02] MEDS ORDERED: POTASSIUM CL 10 MEQ TAB PO ONE ×2 (09:09→23:08)
[2017-03-02] MEDS: PANTOPRAZOLE SODIUM 40 MG TAB PO SCH (10:18)
[2017-03-02] MEDS: ASPIRIN 81 MG CHEWABLE TAB PO SCH (10:18)
[2017-03-02] MEDS: ROSUVASTATIN CALCIUM 20 MG TAB PO SCH (10:18)
[2017-03-02] MEDS: ISOSORBIDE MONONITRATE 30 MG TAB.SR PO SCH (10:18)
[2017-03-02] MEDS: METOPROLOL SUCCINATE XR 25 MG TAB PO SCH (10:19)
[2017-03-02] MEDS: FUROSEMIDE 40 MG/4 ML VIAL IVP SCH ×3 (10:19→20:43)
[2017-03-02] MEDS: SENNOSIDES/DOCUSATE SODIUM TAB PO SCH ×2 (10:19→20:45)
--- NOTE | 2017-03-02 14:32 | HOSPPROG ---
Hospitalist Progress Note Assessment/Plan: 76 yo female new to my care today with h/o A fib presents in acute heart failure , rapid A fib, found to have subacute CVA. #Subacute ischemic CVA with critical left carotid artery stenosis -cont coumadin anticoagulation for now -Neurology consult reviewed and appreciated -Plan for CEA per surgery (possible dc to snf depending on scheduling) #Cognitive impairment - -full cog eval per speech recommends ongoing skilled NETWORK SUPPORT TECHNICIAN services #Acute hypoxemic respiratory failure 2/2 acute heart failure (improving) -Cont IV Lasix per cardiology -Follow daily weights, I&O's #A fib with RVR - HR better controlled, off dilt drip, transitioned to po dilt, along with toprol. Reviewed telemetry. -changed back to q6h dilt given hypotension on Dilt CD -cont anticoagulation, INR therapeutic, pharmacy dosing #Mitral valve replacement - stable per recent echo #CAD s/p CABG - Chest pain free. Cont imdur, statin, Toprol #Ileus - improved, remains constipated. Cont bowel protocol. #AAA - 4.6 cm, will need close f/u. #BEVERLY (resolved) #Hyponatremia (improved) -fluid restrict, follow Dispo - cont inpatient care for now. CM/ethics involved. Pt expressed a wish to go ahead with CEA yesterday. Possible DC to snf prior to surgery Subjective: no new complaints. denies new numbness or weakness. no shortness of breath. wants to go home Objective: Vital Signs Temp Pulse Resp BP Pulse Ox 36.8 C 113 H 23 H 118/65 81 L 03/02/17 11:06 03/02/17 11:06 03/02/17 11:06 03/02/17 11:06 03/02/17 12:03 Laboratory Results 03/02/17 03:55 03/02/17 03:55 03/01/17 03/02/17 03/03/17 05:59 05:59 05:59 Intake Total 860 950 Output Total 800 4470 1050 Balance 60 -3520 -1050 PT 27.3 SEC (12.0-15.0) H 03/02/17 03:55 INR 2.50 (0.83-1.16) H 03/02/17 03:55 - Physical Exam Ears, Nose, Mouth, Throat: moist mucous membranes, hearing normal, ears appear normal, no oral mucosal ulcers Cardiovascular: regular rate and rhythym, no murmur, rub, or gallop Respiratory: no respiratory distress, no rales or rhonchi, clear to auscultation Gastrointestinal: normoactive bowel sounds, soft, non-tender abdomen, no palpable masses Genitourinary: no bladder fullness, no bladder tenderness, no renal bruits Neurologic: AAOx3, No weakness, No numbness Psychiatric: interacting appropriately ICD10 Worksheet Patient Problems: Problems Problem Status Onset Chronic Disease Mgmt/Transitional Care Acute Afib Acute Dehydration Acute Hyponatremia Acute
--- NOTE | 2017-03-02 16:18 | PDCARPN ---
Cardiology Progress Note Chief Complaint: Patient reports ongoing fatigue Assessment/Plan: Assessment: 1st time I have seen this patient, 76-year-old female with previous history of mitral valve repair (mitral valve prolapse) and CABG at [facility] [place], [place] ( 2002), permanent atrial fibrillation, severe TR, dyslipidemia, dilated ascending aorta, history of left lung cancer with radiation treatment therapy. Admitted February 24 with weakness and dyspnea. Found to be in right heart failure with severe TR, LV systolic function preserved, but diastolic heart. Noted to have altered mental status, MRI of the brain showed left anterior temporal infarction. Found to total occlusion of left internal carotid artery. Has been seen by Neurology and vascular surgery with recommendation carotid enterectomy to reduce risk future strokes. Today we received previous medical records from patient's primary respiratory assistant, Dr Cindy Morris ([facility] [place] [place]). Her last MPI study was 08/18/2015 which showed decreased perfusion in the apical lateral region at stress and rest, suggesting small nontransmural infarction. Rest of LV homogeneously perfused. LVEF was 77% at that time. Echocardiogram done 11/03/2016 showed RV moderately dilated, severe TR, ascending aorta measuring 5-5.1 cm, RVSP 58 mm of mercury, RA 15 mm Hg, LV was noted to have grossly normal systolic function. Flattened septum consistent with RV overload. Annuloplasty ring noted in mitral position, mild MR, gradient of 4.5 mm Hg. Echocardiogram done on this admission (02/25/2017) showing normal LV systolic function with EF of 75%, diastolic dysfunction, flattened septum consistent with RV pressure overload, RV moderately dilated, LA severely dilated , RA severely dilated, [id number] mitral annular calcification,, appears to be mitral valve ring, mild mitral stenosis, mild mitral regurgitation, torrential TR, RVSP 45 mm of mercury, moderate aortic valve calcification with mild AI, mild to moderate PI, large pleural effusion. Carotid Doppler done on showing 99% critical stenosis due to calcified plaque on left, near complete occlusion. Dr. Joe has determined that the patient is high risk with her recent heart failure, but feels that she is at a high risk of stroke, over the last few days it has been attempted to diurese and get better rate control. Patient reports today that she feels fatigue, but has had no chest pressure or pain. I&Os show a 1 L in net loss since hospitalization. Patient remains in atrial fibrillation with heart rates varying from 80-110. She has been noted to have mildly lower blood pressures, and has had her diltiazem switch back to immediate release. INRs therapeutic at 2.50 Plan: 1. Acute diastolic left heart failure with right heart: Continue on current Lasix regime, daily I&Os, attempt to keep her AFib under rate control. Isosorbide. 2. Atrial fibrillation: Recently diltiazem changed to immediate release, continue on metoprolol succinate at 37.5 mg, continue monitoring blood pressure , avoid hypotension. Patient remains on warfarin therapy, INR therapeutic. 3. Carotid artery stenosis: Plan on carotid enterectomy by surgery, patient is considered high risk due to heart failure, but higher risk of thrombotic event. Vascular surgery seen, warfarin as above, increased statin therapy. 4. History of CAD: Patient asymptomatic of chest pressure. Mild troponin bump probably related to heart failure. Stress testing done 07/2015 showing old infarct, no new ischemia. Patient started on aspirin therapy, on beta- hayley, and isosorbide. 5. Ascending aorta aneurysm: Measured October of [address] [facility] [place] [place] at 5-5.1 cm. Continue beta-hayley, therapeutic monitoring. 6. Valvular heart disease: Mitral valve repair which appears intact off of recent echocardiogram. Severe TR, diuresing as above 03/02/17 16:15 Subjective: Patient reports no chest pressure or pain, reports mild improvement in shortness of breath, denies of any palpitations, or lightheadedness Reviewed/Discussed With: other (Dr Joe) Objective: Vital Signs (8 Hrs) Temp Pulse Resp BP Pulse Ox 03/02/17 12:03 81 L 03/02/17 11:06 36.8 C 113 H 23 H 118/65 98 Intake/Output (24 Hrs) 03/01/17 03/02/17 03/03/17 05:59 05:59 05:59 Intake Total 860 950 Output Total 800 4470 1050 Balance 60 -3520 -1050 Intake: Oral (ml) 740 820 IV Intake (ml) 20 30 IV Infused (ml) 100 100 Pantoprazole Sodium 40 mg 100 100 In Ns 100 ml @ 200 mls/ hr IV DAILY [facility] Rx#: [id number] Output: Urine (ml) 800 4470 1050 Bedside Commode 3300 1050 Toilet 800 1170 Other: Weight 45.3 kg 45.7 kg Intake Quantity Yes Sufficient Number of Voids Bedside Commode 2 Toilet 1 1 Result Diagrams: 03/02/17 03:55 03/02/17 03:55 - Physical Exam Constitutional: WDWN, no apparent distress Ears, Nose, Mouth, Throat: moist mucous membranes Cardiovascular: no rubs, systolic murmur (2-3/6 systolic murmur noted along left sternal border), irregularly irregular, jugular vein distention (4-5 cm above sternal notch at 45 degree angle.), pulses symmetric bilat Peripheral Pulses: 1+: dorsalis-pedis (R), dorsalis-pedis (L) Respiratory: other (Diminished in bases bilateral, no rhonchi, rales, or wheezing noted.) Gastrointestinal: normoactive bowel sounds Skin: warm, No no edema (+2 peripheral edema bilateral lower extremities to knees.) Neurologic: AAOx3 Psychiatric: cooperative, interactive ICD10 Worksheet Patient Problems: Problems Problem Status Onset Chronic Disease [facility]/Transitional Care Acute Afib Acute Dehydration Acute Hyponatremia Acute
[2017-03-02] MEDS: WARFARIN SODIUM 2.5 MG TAB PO SCH (17:15)
[2017-03-02 19:36] LABS: POTASSIUM 3.3 mEq/L (3.5-5.2)
[2017-03-03] MEDS: DILTIAZEM 30 MG TAB PO SCH ×5 (00:46→23:42)
[2017-03-03 04:43] LABS: INR 2.89 (0.83-1.16); PROTIME(PATIENT) 30.6 SEC (12.0-15.0)
[2017-03-03 04:46] LABS: ANION GAP 6 mEq/L (8-16); CALCIUM 8.2 mg/dL (8.5-10.4); CARBON DIOXIDE 35 mEq/l (22-31); CHLORIDE 93 mEq/L (97-110); CREATININE 0.6 mg/dL (0.6-1.0); GLOMERULAR FILTRATION RATE > 60; GLUCOSE 133 mg/dL (70-100); POTASSIUM 3.7 mEq/L (3.5-5.2); SODIUM 134 mEq/L (134-144)
[2017-03-03] MEDS ORDERED: POTASSIUM CL 10 MEQ TAB PO ONE ×2 (08:22→19:06)
[2017-03-03] MEDS: ROSUVASTATIN CALCIUM 20 MG TAB PO SCH (09:46)
[2017-03-03] MEDS: METOPROLOL SUCCINATE XR 25 MG TAB PO SCH (09:46)
[2017-03-03] MEDS: ASPIRIN 81 MG CHEWABLE TAB PO SCH (09:46)
[2017-03-03] MEDS: ISOSORBIDE MONONITRATE 30 MG TAB.SR PO SCH (09:46)
[2017-03-03] MEDS: PANTOPRAZOLE SODIUM 40 MG TAB PO SCH (09:46)
[2017-03-03] MEDS: FUROSEMIDE 40 MG/4 ML VIAL IVP SCH ×3 (09:47→20:32)
[2017-03-03] MEDS: SENNOSIDES/DOCUSATE SODIUM TAB PO SCH ×2 (10:04→20:32)
--- NOTE | 2017-03-03 11:00 | HOSPPROG ---
Hospitalist Progress Note Assessment/Plan: 76 yo femalewith h/o A fib presents in acute heart failure, rapid A fib, found to have subacute CVA. #Subacute ischemic CVA with critical left carotid artery stenosis -cont coumadin anticoagulation for now -Neurology consult reviewed and appreciated -Plan for CEA per surgery (possible dc to snf depending on scheduling) #Cognitive impairment (improved) #Acute hypoxemic respiratory failure 2/2 acute heart failure (improving) -Cont IV Lasix per cardiology -Follow daily weights, I&O's #A fib with RVR - HR better controlled, off dilt drip, transitioned to po dilt, along with toprol. Reviewed telemetry. -continue q6 po dilt given hypotension on Dilt CD -cont anticoagulation, INR therapeutic, pharmacy dosing #Mitral valve replacement - stable per recent echo #CAD s/p CABG - Chest pain free. Cont imdur, statin, Toprol #Ileus - improved, remains constipated. Cont bowel protocol. #AAA - 4.6 cm, will need close f/u. #BEVERLY (resolved) #Hyponatremia (improved) Dispo - cont inpatient care for now. CM/ethics involved. Pt expressed a wish to go ahead with CEA yesterday but is now wavering. Subjective: no sob. no new neuro deeficits. legs are more swollen today Objective: Vital Signs Temp Pulse Resp BP Pulse Ox 36.3 C 83 17 101/72 98 03/03/17 09:03 03/03/17 09:03 03/03/17 09:03 03/03/17 09:03 03/03/17 09:03 Laboratory Results 03/02/17 03:55 03/03/17 03:45 03/02/17 03/03/17 03/04/17 05:59 05:59 05:59 Intake Total 950 1690 Output Total 4470 2000 Balance -3520 -310 PT 30.6 SEC (12.0-15.0) H 03/03/17 03:45 INR 2.89 (0.83-1.16) H 03/03/17 03:45 gen nad cv rrr yonas pulm bilat rales abd soft +bs no guard or rebound ext with bilat pitting edema ICD10 Worksheet Patient Problems: Problems Problem Status Onset Chronic Disease Mgmt/Transitional Care Acute Afib Acute Dehydration Acute Hyponatremia Acute
--- NOTE | 2017-03-03 11:44 | PDCARPN ---
Cardiology Progress Note Chief Complaint: RHF/AF/MV repair/CAD/preop risk stratification/TAA Assessment/Plan: Assessment: 76-y/o F followed by Dr. Morris cardiology as outpatient, admitted with weakness and fatigue. PMH of MV Coretta Walker ring repair and triangular resection ant mitral leaflet/ 2V CABG 2002 with reverse SVG to rPDA and BINGHAM to LAD, PCI to LCx at that time, likely permanent AF, asthma/COPD, ongoing tobacco abuse, spiculated mass/lung mass, anxiety. Found to have severe R heart dysfunction and fluid overload. Also new dx of stroke related to occlusive LICA. #. RHF: with phtn/severe TR/ [id number] still has fluid overload by examination of ankles/ abdominal distention and rales continue IV lasix #. AF: rate control appears improved continue oral Dilt 30 IR q 6 hours (due to some hypotension) in addition to home dosing of Metoprolol succinate [id number] very elevated/ on AC with Coumadin #. acute CVA: MRI of brain shows acute L anterior temporal lobe stroke as well as subacute infarct R inner hemispheric fissure seen by neurology who is recommending CEA for secondary prevention Crestor dose increased #. hyponatremia: likely due to hypervolemia improved #. ascending aortic aneurysm: measured to be 5-5.1 cm by TTE from [facility] echo 11/08 this has been followed by her o/p risk specialist pt is felt to be too high risk for surgical repair #. MV repair: appears appropriately functioning repaired in 2002 #. lung cancer: obtained outpatient notes in 02/[address] Allen for workup for possible aneurysmectomy CTA shhowed 13x14 mm spiculated nodule in ISAC suspicious for cancer PET scan showed FDG avid with one L-sided paramediastinal node with avidity PFT shows severe airflow limitation, hyperinflated and decreased DLCO underwent XRT then #. CAD: minimally elevated troponin in this admission last MPI done 08/18/15 which showed LVEF 77% with no significant perfusion abnormalities did have reversal of lateral to septal intensity consistent with mild nontransmural infarct versus attenuation artifact Plan: Pt is high surgical risk but is high risk for repeat strokes Care conference with sons and patient planned for today >45 minutes spent with >50% of time spent on counseling 03/03/17 12:35 Subjective: Feels overwhelmed and worried about making decision regarding CEA. Dyspnea improved but edema is still present. Has had some relief from her constipation with BM today. Reviewed/Discussed With: family, hospitalist Objective: Vital Signs (8 Hrs) Temp Pulse Resp BP Pulse Ox 03/03/17 09:03 97.4 F 83 17 101/72 98 03/03/17 05:49 79 97/58 L 03/03/17 04:00 98.4 F 79 19 97/58 L 97 Intake/Output (24 Hrs) 03/02/17 03/03/17 03/04/17 05:59 05:59 05:59 Intake Total 950 1690 Output Total 4470 2000 400 Balance -3520 310 -400 Intake: Oral (ml) 820 1690 IV Intake (ml) 30 IV Infused (ml) 100 Pantoprazole Sodium 40 mg 100 In Ns 100 ml @ 200 mls/ hr IV DAILY [facility] Rx#: [id number] Output: Urine (ml) 4470 2000 400 Bedside Commode 3300 2000 Toilet 1170 400 Other: Weight 45.6 kg Intake Quantity Yes Sufficient Number of Voids Bedside Commode 2 1 Toilet 1 Number of Stools Bedside Commode 1 1 Toilet 2 Result Diagrams: 03/02/17 03:55 03/03/17 03:45 Telemetry: AF - Physical Exam Constitutional: no apparent distress, cachectic Eyes: anicteric sclera Cardiovascular: systolic murmur, irregularly irregular Respiratory: reduced air movement Gastrointestinal: normoactive bowel sounds Psychiatric: cooperative, interactive ICD10 Worksheet Patient Problems: Problems Problem Status Onset Afib Acute Chronic Disease [facility]/Transitional Care Acute Dehydration Acute Hyponatremia Acute
[2017-03-03] MEDS ORDERED: WARFARIN SODIUM 2.5 MG TAB PO ONE (16:00)
--- NOTE | 2017-03-03 16:25 | SOAPPROG ---
<Katlin pApiah - Last Filed: 03/03/17 16:23> SOAP Progress Note Assessment/Plan: Assessment: 76yo F multiple comorbidities, including afib on warfarin, CHF, hx CABG, now with findings of subacute left CVA and severe L carotid stenosis. Plan L CEA with Dr. Blank next week, possibly depending on schedule Appreciate cardiology and hospitalist management Seen c Dr. Rao S: Doing well this morning, no new issues. Sleepy because just woke up O: sitting up on edge of bed, comfortable, NAD NCAT, no hearing defecits Answers questions appropriately No increased WOB No peripheral edema Objective: Vital Signs Temp Pulse Resp BP Pulse Ox 36.3 C 85 18 106/56 L 95 03/03/17 15:57 03/03/17 15:57 03/03/17 15:57 03/03/17 15:57 03/03/17 15:57 Laboratory Results 03/02/17 03:55 03/03/17 03:45 03/02/17 03/03/17 03/04/17 05:59 05:59 05:59 Intake Total 950 1690 320 Output Total 4470 2000 475 Balance -3520 -310 -155 PT 30.6 SEC (12.0-15.0) H 03/03/17 03:45 INR 2.89 (0.83-1.16) H 03/03/17 03:45 ICD10 Worksheet Patient Problems: Problems Problem Status Onset Afib Acute Chronic Disease Mgmt/Transitional Care Acute Dehydration Acute Hyponatremia Acute <Francisca Rao - Last Filed: 03/03/17 23:23> SOAP Progress Note Assessment/Plan: Assessment: Returned at 1300 and had discussion with family regarding need for CTA. Dr. Blank to see in am. Later found out that will need to be transfered to [facility] due to insurance Plan: 03/03/17 23:22 Objective: Vital Signs Temp Pulse Resp BP Pulse Ox 36.5 C 82 18 101/61 97 03/03/17 20:00 03/03/17 20:00 03/03/17 20:00 03/03/17 20:00 03/03/17 20:00 Laboratory Results 03/02/17 03:55 03/03/17 18:00 03/02/17 03/03/17 03/04/17 05:59 05:59 05:59 Intake Total 950 1690 320 Output Total 9503 0439 866 [facility] -8227 -310 -070 PT 30.6 SEC (12.0-15.0) H 03/03/17 03:45 INR 2.89 (0.83-1.16) H 03/03/17 03:45
[2017-03-03 18:33] LABS: POTASSIUM 3.7 mEq/L (3.5-5.2)
[2017-03-04] MEDS: DILTIAZEM 30 MG TAB PO SCH ×2 (05:00→12:09)
[2017-03-04 05:02] LABS: POTASSIUM 3.6 mEq/L (3.5-5.2)
[2017-03-04 08:53] VITALS: RESP 18
[2017-03-04] MEDS: METOPROLOL SUCCINATE XR 25 MG TAB PO SCH (09:18)
[2017-03-04] MEDS: ROSUVASTATIN CALCIUM 20 MG TAB PO SCH (09:20)
[2017-03-04] MEDS: ASPIRIN 81 MG CHEWABLE TAB PO SCH (09:20)
[2017-03-04] MEDS: ISOSORBIDE MONONITRATE 30 MG TAB.SR PO SCH (09:20)
[2017-03-04] MEDS: PANTOPRAZOLE SODIUM 40 MG TAB PO SCH (09:20)
[2017-03-04] MEDS: FUROSEMIDE 40 MG/4 ML VIAL IVP SCH (09:21)
[2017-03-04] MEDS: SENNOSIDES/DOCUSATE SODIUM TAB PO SCH (09:21)
--- NOTE | 2017-03-04 09:22 | PDIAF ---
- Diagnosis Diagnosis: right heart failure/afib/critical carotid artery stenosis Code Status: Do Not Resuscitate - Medication Management Discharge Medications: Medications to Continue on Transfer Isosorbide Mononitrate [Isosorbide Mononitrate ER] 60 mg PO BID 02/24/17 [Last Taken Unknown] Albuterol [Proventil Inhaler HFA (*)] 1 - 2 puffs IH Q4H PRN 02/25/17 [Last Taken Unknown] Magnesium Hydroxide [Milk of Magnesia] 30 ml PO DAILY PRN 02/25/17 [Last Taken Unknown] Metoprolol Succinate Xr [Toprol Xl 25 mg (*)] 37.5 mg PO DAILY 02/25/17 [Last Taken Unknown] Potassium Cl [Klor-Con 20 meq (*)] 40 meq PO DAILY@14 02/25/17 [Last Taken Unknown] Potassium Cl [Klor-Con 20 meq (*)] 60 meq PO DAILY 02/25/17 [Last Taken Unknown] Tiotropium Inhaler [Spiriva Handihaler] 18 mcg IH DAILY 02/25/17 [Last Taken Unknown] Acetaminophen [Tylenol 325mg (*)] 650 mg PO Q6H PRN #0 tab 03/04/17 [Last Taken Unknown] Aspirin [Aspirin 81mg (*)] 81 mg PO DAILY #0 tab.chew 03/04/17 [Last Taken Unknown] Diltiazem [Cardizem Ir Q6hr] 30 mg PO Q6HRS #0 tab 03/04/17 [Last Taken Unknown] Furosemide [Lasix 80 MG (*)] 80 mg PO DAILY16 #0 tab 03/04/17 [Last Taken Unknown] Furosemide [Lasix 80 MG (*)] 120 mg PO DAILY10 #0 tab 03/04/17 [Last Taken Unknown] Isosorbide Mononitrate [Imdur 30 mg (*)] 60 mg PO DAILY #0 tab.sr 03/04/17 [ Last Taken Unknown] Pantoprazole Sodium [Protonix 40mg (*)] 40 mg PO DAILY #0 tab 03/04/17 [Last Taken Unknown] Rosuvastatin Calcium [Crestor 20mg (*)] 20 mg PO DAILY #0 tab 03/04/17 [Last Taken Unknown] Warfarin Sodium [Coumadin 2.5MG (*)] 1.25 mg PO DAILY16 #0 tab 03/04/17 [Last Taken Unknown] Warfarin Sodium [Warfarin Pharmacy To Dose] 1 each [facility] AD #0 ea 03/04/17 [Last Taken Unknown] Discharge Medications: Refer to the Discharge Home Medication list for PRN reason. - Orders Diet Recommendation: no restrictions on diet - Follow Up Care Current Providers and Referrals: Oumar Blank MD [Medical Doctor] - Patient,NotPresent [Unknown] - As per Instructions NAVA SAVAGE [Medical Doctor] - Adalberto Hayden MD [Medical Doctor] -
[2017-03-04] MEDS ORDERED: POTASSIUM CL 10 MEQ TAB PO ONE (09:56)
--- NOTE | 2017-03-04 10:07 | GDS ---
[f rep st] TRANSFER SUMMARY TRANSFER DIAGNOSES: 1. Acute right heart failure with severe pulmonary hypertension and tricuspid regurgitation. 2. Rate controlled atrial fibrillation. 3. Improved acute encephalopathy due to subacute cerebrovascular accident with left anterior tempor al lobe stroke, as well as subacute infarct right hemispheric fissure seen on MRI. 4. 99% critical stenosis due to calcified plaque of left internal carotid artery, per Doppler ultra sound. 5. Resolved hypervolemic hyponatremia. 6. History of ascending aortic aneurysm measured to be 5 to 5.1 cm by TTE. 7. History of mitral valve repair. 8. Reported history of lung cancer, status post XRT. 9. History of coronary artery disease. CONSULTATIONS: [facility]; Adalberto Hayden, Neurology; Tyrell Blank, Vascular Surgery . HOSPITAL COURSE: 1. Right heart failure with poorly-controlled AFib with RVR. The patient presented to the hospital on 02/25/2017, with fatigue and palpitations where she was found to be in heart failure. Her INR w as therapeutic. Her rate was controlled on a diltiazem drip. She was found to be massively volume overloaded and hyponatremic and has been on IV furosemide at a dose of 80 mg three times daily. Her volume overload appears to be improving. On day of discharge, her O2 saturation is 97% on 2 L, and she has improving swelling in her legs. 2. Acute encephalopathy thought to possibly be due to cerebral embolic events. An MRI was done on 02/26/2017, that showed a subacute infarct in the anteromedial left temporal lobe in the region of t he hippocampus. There are also possible tiny infarcts of the right posterior frontal and parasagitt al location in the region of the cingulate gyrus. Neurology was consulted who recommended a carotid endarterectomy in the setting of critical left internal carotid artery stenosis of 99% per Doppler ultrasound done on 02/27/2017. The patient has been seen by Ethics and has been deemed decisional. The patient does understand the risks of undergoing surgery. The risks and benefits have also been discussed with the patient's family who are in agreement to pursue with surgical intervention as we ll. PHYSICAL EXAM: VITAL SIGNS: On day of discharge, blood pressure 101/53, pulse 83, respiratory rate 18, O2 saturation 97% on 2 L, temperature afebrile. GENERAL: No acute distress. HEART: S1, S2. LUNGS: Clear. ABDOMEN: Soft. EXTREMITIES: Trace edema. IMAGING: Pertinent lab and studies done on this hospital stay; brain MRI done on 02/26/2017, refer to report. Carotid Doppler done on 02/27/2017, refer to report. Echocardiogram done on 02/25/2017: Ejection fraction was 75% with torrential tricuspid regurgitatio n and Doppler evidence for moderate pulmonary hypertension with a right ventricular systolic pressur e 45 mmHg. There is moderate aortic valve calcification and mild aortic insufficiency with mild to moderate pulmonic valvular regurgitation. Please refer to report for full details. TRANSFER MEDICATIONS: Please refer to Transfer Medication Summary in [employer]. TRANSFER INSTRUCTIONS: The patient will be transferred to [facility] per the request of her insurance company since she will need to undergo carotid endarterectomy which her insurance company says need s to be done at the [place]. The patient will need to have her INR monitored and I should note h er INR on day of transfer is 2.89. I have transitioned her back to her usual home dose of furosemid e of 120 mg in the morning and 80 mg in the p.m. She may very well need further diuresis with IV fu rosemide. Greater than 30 minutes were spent on the care and coordination of this transfer. /[id number]/MODL
--- NOTE | 2017-03-04 10:37 | SOAPPROG ---
SOAP Progress Note Assessment/Plan: Assessment: 76 FEMALE WITH SUBACUTE LEFT CVA WITH RESOLVED SYMPTOMS/ 95% LEFT ICA STENOSIS NEURO STABLE/ OTHERWISE MEDICALLY STABLE RISKS AND OPTIONS FULLY DISCUSSED NEEDS SEMI-URGENT LEFT CEA PROBABLY NEXT WEEK WITH THIS HIGH GRADE LESION I WOULD CONSIDER HEPARIN DRIP AND HOLD COUMADIN NOT A GREAT CANDIDATE FOR TRANSFER Plan:DISCUSS WITH IM 03/04/17 10:33 03/04/17 11:27 Objective: Vital Signs Temp Pulse Resp BP Pulse Ox 36.4 C 83 18 101/53 L 97 03/04/17 08:00 03/04/17 08:00 03/04/17 08:00 03/04/17 08:00 03/04/17 08:00 Laboratory Results 03/02/17 03:55 03/04/17 03:29 03/03/17 03/04/17 03/05/17 05:59 05:59 05:59 Intake Total 1690 520 Output Total 1999 1025 Balance -310 -505 PT 30.6 SEC (12.0-15.0) H 03/03/17 03:45 INR 2.89 (0.83-1.16) H 03/03/17 03:45 ICD10 Worksheet Patient Problems: Problems Problem Status Onset Afib Acute Chronic Disease [facility]/Transitional Care Acute Dehydration Acute Hyponatremia Acute
[2017-03-04 10:55] VITALS: TEMP 97.9; O2SAT 96
[2017-03-04] MEDS ORDERED: WARFARIN SODIUM 2.5 MG TAB PO ONE (11:15)
[2017-03-04 12:05] VITALS: BP 99/50; PULSE 80
[2017-03-04] MEDS ORDERED: WARFARIN SODIUM 2.5 MG TAB PO SCH (16:00)
== END 2017-03-04 14:29 | disposition short-term general hospital (02) | DRG 291 ==
LOC: EDUNIT# → F2W 02-25 00:30
PROVIDERS: ADMIT Internal Medicine; ATTEND Internal Medicine
DX: I50.31 Acute diastolic (congestive) heart failure (principal); I63.232 Cerebral infarction due to unspecified occlusion or stenosis of left carotid arteries; G93.49 Other encephalopathy; E87.1 Hypo-osmolality and hyponatremia; I48.91 Unspecified atrial fibrillation; L89.151 Pressure ulcer of sacral region, stage 1; I07.1 Rheumatic tricuspid insufficiency; I73.9 Peripheral vascular disease, unspecified; F03.90 Unspecified dementia, unspecified severity, without behavioral disturbance, psychotic disturbance, mood disturbance, and anxiety; I71.4 Abdominal aortic aneurysm, without rupture; I27.2 Other secondary pulmonary hypertension; Z72.0 Tobacco use; Z95.1 Presence of aortocoronary bypass graft; Z95.4 Presence of other heart-valve replacement; Z79.01 Long term (current) use of anticoagulants; Z66 Do not resuscitate; Z85.118 Personal history of other malignant neoplasm of bronchus and lung
CPT/HCPCS: 82607-90; 92507-GN; 92523-GN; 96374; 97116-GP; 97162-GP; 97166-GO; 97530-GP; 97535-GO; G8978-GP-CJ; G8979-GP-CI; G8987-GO-CK; G8988-GO-CI; G9162-GN-CK; G9163-GN-CI; Q9967